=== PATIENT | female | born 1975 | race African-American/Black ===

== ENCOUNTER 2017-10-10 13:17 | Emergency (ER) | payer OTHER ==
[2017-10-10 13:39] VITALS: BP 105/69; PULSE 84; TEMP 98.4; BMI 29.3
[2017-10-10 14:52] LABS: HCG,QUALITATIVE URINE NEGATIVE
[2017-10-10 14:53] LABS: URINE APPEARANCE SLCLOUDY; URINE BILIRUBIN NEGATIVE (NEGATIVE); URINE BLOOD NEGATIVE (NEGATIVE); URINE COLOR STRAW; URINE GLUCOSE (UA) NEGATIVE (NEGATIVE); URINE KETONE NEGATIVE (NEGATIVE); URINE LEUK ESTERASE NEGATIVE (NEGATIVE); URINE NITRITE NEGATIVE (NEGATIVE); URINE PROTEIN NEGATIVE (NEGATIVE); URINE UROBILINOGEN NEGATIVE mg/dL (0.2-1.0)
--- NOTE | 2017-10-10 15:04 | PDOC ---
History of Present Illness - General Chief Complaint: ,Possible Stated Complaint: POSSIBLE Time Seen by Provider: 10/10/17 14:33 History Source: Patient Exam Limitations: No Limitations - History of Present Illness Initial Comments: 10/10/17 14:58 This is a 41-year-old female 5 para 5 who presents to emergency department having one positive and one negative test at home. Patient is concerned that she may be and wants reevaluation of possible . She states she has irregular menses but her last period started on September 29 last a for 5 days and was of her normal flow. Patient states she normally has 7 or 8 day menses is concerned that she may be as this was a presentation of during her last child. She denies any fevers, abdominal pain, back pain, vaginal discharge, vaginal bleeding at this time. 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 Past History - Past Medical History Allergies/Adverse Reactions: Allergies Allergy/AdvReac Type Severity Reaction Status Date / Time acetaminophen Allergy Intermediate Difficulty Verified 10/10/17 13:32 Breathing iodine Allergy Mild Swelling Verified 10/10/17 13:32 Penicillins Allergy Mild Hives Verified 10/10/17 13:32 COPD: No HTN: Yes - Immunization History Immunization Up to Date: No - Suicide/Smoking/Psychosocial Hx Smoking History: Current every day smoker Have you smoked in the past 12 months: Yes Number of Cigarettes Smoked Daily: 4 Information on smoking cessation initiated: No Hx Alcohol Use: No Drug/Substance Use Hx: No Substance Use Type: Marijuana Review of Systems - Review of Systems Able to Perform ROS?: Yes Is the patient limited Telugu proficient: No Constitutional: No: Symptoms Reported HEENTM: No: Symptoms Reported Respiratory: No: Symptoms reported Cardiac (ROS): No: Symptoms Reported ABD/GI: No: Symptoms Reported : No: Symptoms Reported Musculoskeletal: No: Symptoms Reported Integumentary: No: Symptoms Reported Neurological: No: Symptoms reported *Physical Exam - Vital Signs Last Vital Signs Temp Pulse Resp BP Pulse Ox 98.4 F 84 16 105/69 100 10/10/17 13:33 10/10/17 13:33 10/10/17 13:33 10/10/17 13:33 10/10/17 13:33 - Physical Exam General Appearance: Yes: Appropriately Dressed. No: Apparent Distress Respiratory/Chest: positive: Lungs Clear, Normal Breath Sounds. negative: Respiratory Distress, Accessory Muscle Use Cardiovascular: positive: Regular Rhythm, Regular Rate Gastrointestinal/Abdominal: positive: Normal Bowel Sounds, Soft. negative: Tender Musculoskeletal: positive: Normal Inspection. negative: CVA Tenderness Extremity: positive: Normal Inspection Integumentary: positive: Normal Color, Dry, Warm Neurologic: positive: Fully Oriented, Alert, Normal Mood/Affect, Normal Response ED Treatment Course - ADDITIONAL ORDERS Additional order review: Laboratory Results 10/10/17 02:32 Urine HCG, Qual Negative Medical Decision Making - Medical Decision Making 10/10/17 15:01 A/P: 41-year-old presents emergency Department with one positive and one negative home test. Patient is here to clarify her status. Abdomen soft nontender nondistended. Normoactive bowel sounds. Patient denies symptoms. I'll perform a urine test and reevaluate. Your testing is negative. Patient informed that she should follow-up with her primary doctor should she have any future concerns. *DC/Admit/Observation/Transfer Diagnosis at time of Disposition: Negative test - Discharge Dispostion Disposition: HOME Condition at time of disposition: Stable Admit: No - Referrals Referrals: Lakshmi Browne [Primary Care Provider] - - Patient Instructions Additional Instructions: Make an appointment with her primary doctor for evaluation if you experience symptoms. Return to emergency department for any concerns. Thank you very much for choosing us to provide your emergent healthcare needs. - Post Discharge Activity
== END 2017-10-10 15:19 | disposition home or self-care (01) ==
LOC: JERFT 13:17
DX: Z32.02 Encounter for pregnancy test, result negative (principal)
CPT/HCPCS: 81003; 84703; 99281-25

== ENCOUNTER 2018-01-25 16:34 | Inpatient (IN) | payer OTHER ==
--- NOTE | 2018-01-25 16:40 | PDOC ---
Rapid Medical Evaluation Time Seen by Provider: 01/25/18 16:35 Medical Evaluation: Allergies Allergy/AdvReac Type Severity Reaction Status Date / Time acetaminophen Allergy Intermediate Difficulty Verified 10/10/17 13:32 Breathing iodine Allergy Mild Swelling Verified 10/10/17 13:32 Penicillins Allergy Mild Hives Verified 10/10/17 13:32 I have performed a brief in-person evaluation of this patient. The patient presents with a chief complaint of: right sided pelvic pain x 2 weeks ago. +vomiting. LMP was last week. Denies vaginal bleeding/discharge. Patient admits to h/o PCP and marijuana use with last use 2 weeks ago. Pertinent physical exam findings: patient is sweating, tearful. I have ordered the following: labs, UA/hcg, urine tox The patient will proceed to the ED for further evaluation. Discharge Disposition - Diagnosis Pelvic pain - Referrals - Patient Instructions - Post Discharge Activity
[2018-01-25 17:09] LABS: BASO % 1.3 % (0-2.0); EOS % 1.1 % (0-4.5); HEMATOCRIT 40.2 % (32.4-45.2); HEMOGLOBIN 13.4 GM/dL (10.7-15.3); LYMPH % 33.1 % (8-40); MCHC 33.3 g/dl (32.0-36.0); MEAN CELL VOLUME 84.2 fl (80-96); MEAN PLT VOLUME 9.2 fl (7.5-11.1); NEUT % 45.5 % (42.8-82.8); PLATELET COUNT 253 K/MM3 (134-434); RBC 4.77 M/mm3 (3.60-5.2); RDW 13.4 % (11.6-15.6); WHITE BLOOD COUNT 3.4 K/mm3 (4.0-10.0)
--- NOTE | 2018-01-25 17:37 | PDOC ---
History of Present Illness - General Chief Complaint: Pain Stated Complaint: PAIN Time Seen by Provider: 01/25/18 16:35 History Source: Patient Exam Limitations: No Limitations - History of Present Illness Initial Comments: 01/25/18 17:32 Patient is an 42F with history of depression, anxiety, insomnia, PID, HLD, polysubstance abuse and here today complaining of suicidal ideation and pelvic pain. Patient states that she feels overwhelmed by life and is thinking about committing suicide because no one is helping her. She states that she has tried suicide in the past with an attempted overdose and an attempted drowning. Patient denies active plan at this time. Patient is tearful. Patient states that she used marijuana and PCP this morning. Patient endorses history of alcohol abuse, cocaine abuse and heroin abuse. Patient states that she has been having pelvic pain for the past 2 weeks, ever since she found out that she wasn't . Denies fevers, chills. Endorses an episode of nausea and vomiting last week. Last bowel movement was today. Endorses associated vaginal pain with sex. Denies discharge. Endorses history of PID in the past. Past History - Past Medical History Allergies/Adverse Reactions: Allergies Allergy/AdvReac Type Severity Reaction Status Date / Time acetaminophen Allergy Intermediate Difficulty Verified 01/25/18 16:35 Breathing iodine Allergy Mild Swelling Verified 01/25/18 16:35 Penicillins Allergy Mild Hives Verified 01/25/18 16:35 Home Medications: Ambulatory Orders NK [No Known Home Medication] 10/10/17 COPD: No DVT: No HTN: Yes - Immunization History Immunization Up to Date: No - Suicide/Smoking/Psychosocial Hx Smoking History: Current every day smoker Have you smoked in the past 12 months: Yes Number of Cigarettes Smoked Daily: 4 Information on smoking cessation initiated: Yes 'Breaking Loose' booklet given: 01/25/18 Hx Alcohol Use: Yes Drug/Substance Use Hx: Yes (pcp,avtar) Substance Use Type: Marijuana Review of Systems - Review of Systems Comments:: 01/25/18 17:35 GENERAL/CONSTITUTIONAL: No fever or chills. No weakness. HEAD, EYES, EARS, NOSE AND THROAT: No change in vision. No sore throat. CARDIOVASCULAR: No chest pain or shortness of breath RESPIRATORY: No cough, wheezing, or hemoptysis. GASTROINTESTINAL: Positive for nausea, vomiting. Negative for diarrhea or constipation. GENITOURINARY: No dysuria, frequency, or change in urination. MUSCULOSKELETAL: No joint or muscle swelling or pain. No neck or back pain. SKIN: No rash NEUROLOGIC: No headache, vertigo, loss of consciousness, or change in strength/ sensation. HEMATOLOGIC/LYMPHATIC: No anemia, easy bleeding, or history of blood clots. ALLERGIC/IMMUNOLOGIC: No hives or skin allergy. *Physical Exam - Vital Signs Last Vital Signs Temp Pulse Resp BP Pulse Ox 98.4 F 100 H 18 138/83 100 01/25/18 16:37 01/25/18 16:37 01/25/18 16:37 01/25/18 16:37 01/25/18 16:37 - Physical Exam Comments: 01/25/18 17:36 GENERAL: Awake, alert, and fully oriented, tearful, sitting up in bed. PSYCH: Mood is depressed, affect is congruent, endorses SI, denies HI HEAD: No signs of trauma, normocephalic, atraumatic EYES: PERRLA, EOMI, sclera anicteric, conjunctiva clear ENT: Auricles normal inspection, hearing grossly normal, nares patent, oropharynx clear without exudates. Moist mucosa NECK: Normal ROM, supple, no lymphadenopathy, JVD, or masses LUNGS: No distress, speaks full sentences, clear to auscultation bilaterally HEART: Regular rate and rhythm, normal S1 and S2, no murmurs, rubs or gallops, peripheral pulses normal and equal bilaterally. ABDOMEN: Soft, tender in suprapubic abdomen, normoactive bowel sounds. No guarding, no rebound. No masses EXTREMITIES: Normal inspection, Normal range of motion, no edema. No clubbing or cyanosis. NEUROLOGICAL: Cranial nerves II through XII grossly intact. Normal speech, normal gait, no focal sensorimotor deficits SKIN: Warm, Dry, normal turgor, no rashes or lesions noted. ED Treatment Course - LABORATORY CBC & Chemistry Diagram: 01/25/18 17:00 01/25/18 17:00 - ADDITIONAL ORDERS Additional order review: 01/25/18 17:00 RBC 4.77 MCV 84.2 MCHC 33.3 RDW 13.4 MPV 9.2 Neutrophils % 45.5 Lymphocytes % 33.1 Monocytes % 19.0 H Eosinophils % 1.1 Basophils % 1.3 Medical Decision Making - Medical Decision Making 01/25/18 17:37 Patient is 42F with history of depression, anxiety, PID, insomnia, hallucinations, HLD and here today complaining of suicidal ideation and lower abdominal pain. Patient has been placed on 1:1. DDx for abdominal pain is weighted towards UTI vs PID. Will workup with abdominal labs. Pelvic exam will be done once in private room. 01/25/18 18:34 Pelvic exam positive for discharge and CMT. Normal external genitalia. Will treat for PID as inpatient given patients socioeconomic status and SI. 01/25/18 18:42 CBC normal. UA negative. CMP reassuring. Utox and G/C pending. Will treat PID with clinda/gent as patient states that she has throat swelling with penicillin. EKG shows normal sinus rhythm with rate of 62. No st elevations/depressions. No significant t wave inversions. Dr Chamberlain contacted, will see patient in morning. *DC/Admit/Observation/Transfer Diagnosis at time of Disposition: PID (acute pelvic inflammatory disease) - Discharge Dispostion Condition at time of disposition: Stable Decision to Admit order: Yes - Referrals - Patient Instructions - Post Discharge Activity
[2018-01-25 17:40] LABS: ALK PHOS 79 U/L (45-117); ANION GAP 10 (8-16); BILIRUBIN,TOTAL 0.4 mg/dL (0.2-1.0); BLOOD UREA NITROGEN 10 mg/dL (7-18); CALCIUM 8.9 mg/dL (8.5-10.1); CHLORIDE 105 mmol/L (98-107); CO2 24 mmol/L (21-32); CREATININE 0.6 mg/dL (0.55-1.02); GLUCOSE,RANDOM 89 mg/dL (74-106); POTASSIUM 3.6 mmol/L (3.5-5.1); SGOT/AST 14 U/L (15-37); SGPT/ALT 19 U/L (12-78); SODIUM 139 mmol/L (136-145); TOT PROT 8.6 g/dl (6.4-8.2)
[2018-01-25 18:28] LABS: HCG,QUALITATIVE URINE NEGATIVE
[2018-01-25 18:32] LABS: URINE APPEARANCE CLOUDY; URINE BILIRUBIN NEGATIVE (<2.0 mg/dL); URINE BLOOD NEGATIVE (NEGATIVE); URINE COLOR YELLOW; URINE GLUCOSE (UA) NEGATIVE (NEGATIVE); URINE KETONE TRACE (NEGATIVE); URINE LEUK ESTERASE NEGATIVE (NEGATIVE); URINE NITRITE NEGATIVE (NEGATIVE); URINE PROTEIN NEGATIVE (NEGATIVE); URINE UROBILINOGEN NEGATIVE mg/dL (0.2-1.0)
[2018-01-25] MEDS ORDERED: GENTAMICIN SO4 *PEDIATRIC* 20 MG/2 ML VIAL IVPB ONE (18:41)
[2018-01-25] MEDS ORDERED: CLINDAMYCIN 900 MG PREMIX IVPB 900 MG/50 ML BAG IVPB ONE ×2 (18:41→19:57)
[2018-01-25 18:45] LABS: ACETAMINOPHEN <2.0 ug/mL
[2018-01-25 18:51] LABS: COCAINE, UR NEGATIVE ng/ml (CUTOFF=300); METHADONE, UR NEGATIVE ng/ml (CUTOFF=300); OPIATES, URI NEGATIVE ng/ml (CUTOFF=300); URINE AMPHETAMINES NEGATIVE ng/ml (CUTOFF=500); URINE BARBITURATES NEGATIVE ng/ml (CUTOFF=200); URINE BENZODIAZEPINES NEGATIVE ng/ml (CUTOFF=200)
[2018-01-25 18:52] LABS: PHENCYCLIDINE,URINE POSITIVE ng/ml (CUTOFF=25)
--- NOTE | 2018-01-25 18:58 | PDOC ---
Attending Attestation - Resident Resident Name: JaidendevoraMarko - ED Attending Attestation I have performed the following: I have examined & evaluated the patient, The case was reviewed & discussed with the resident, I agree w/resident's findings & plan, Exceptions are as noted - HPI HPI: 01/25/18 18:49 42-year-old male patient with history of psoriasis, pelvic inflammatory disease , depression, anxiety, polysubstance abuse presents with pelvic pain for 2 weeks. Patient reports that she sexually active one partner without condoms. She denies any vaginal discharge but noticed pain in the pelvic region. States it feels similar to prior pelvic inflammatory disease. Denies fevers or chills. Reports some dysuria and some lower abdominal suprapubic discomfort. Came into the ER for further evaluation. Incidentally, patient has been endorsing feeling generally overwhelmed and very depressed. The patient states that she has a lot of personal issues going on and has been endorsing suicidal ideation but without acute plan. She currently denies injuring herself. The patient was placed on one-to-one and psych was consulted. - Physicial Exam PE: 01/25/18 18:50 GENERAL: Awake, alert, and fully oriented, +depressed affect, +crying HEAD: No signs of trauma EYES:EOMI, sclera anicteric, conjunctiva clear ENT: Auricles normal inspection, hearing grossly normal, nares patent, NECK: Normal ROM, supple, ABDOMEN: Soft, suprapubic discomfort. No guarding, no rebound. No masses. 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 No clubbing or cyanosis. No cords, erythema, or tenderness NEUROLOGICAL: Cranial nerves II through XII grossly intact. Normal speech, normal gait SKIN: Warm, Dry, normal turgor, psoriasis noted on the skin - Medical Decision Making 01/25/18 18:53 Vital Signs Temp Pulse Resp BP Pulse Ox 98.4 F 100 H 18 138/83 100 01/25/18 16:37 01/25/18 16:37 01/25/18 16:37 01/25/18 16:37 01/25/18 16:37 42 year old female patient presents with pelvic pain likely pelvic inflammatory disease. We'll treat empirically with antibiotics. Patient is severely ALLERGIC to penicillin so we will avoid ceftriaxone and treat with gentamicin and clindamycin. We'll also obtain a urinalysis to rule out urinary tract infection. Given her severe penicillin ALLERGY, we'll admit for IV antibiotics. We had consulted psychiatry. Patient placed on one-to-one. Psychiatry will evaluate the patient. Heart Score/ECG Review #1 ECG reviewed & interpreted by me at: 18:35 01/25/18 18:59 NSR 62, no std/kevin, normal axis, normal intervals, T wave flag aVL< TWI V2, V3, QTC 430 msec
[2018-01-25] MEDS ORDERED: diazePAM CARPU-JECT 10 MG/2 ML DISP.SYRIN IVPUSH PRN (20:29)
[2018-01-25] MEDS ORDERED: LORazepam 1 MG TABLET PO PRN (20:38)
--- NOTE | 2018-01-25 20:52 | HP ---
CHIEF COMPLAINT: suicidal, abnominal pain PCP: None HISTORY OF PRESENT ILLNESS: The patient is a 42 year old female with a PMH of depression, anxiety, polysubstance abuse ( cocaine, heroin, Marijuana, PCP), psoriasis, bronchitis, hyperlipidemia, HTN, that presented to the hospital today complaining of suicidal thoughts, hearing voices. She states that he is "not feeling mentally stable" She had suicidal attempts in the past: tried drowning and medication overdose. She was treated with Seroquel and Risperidone but didn't like to continue those medications. The patient denied hurting herself or others. The patient used Marjiuana and PCP earlier today. She snores illicid drugs. For the past 1-2 weeks she started experiencing lower abdominal pain and foul smelling discharge from her vagina. She also endorsed pain with intercourse. She also had two episodes of non bloody non bilious vomiting today. The patient had STDs, PID in the past that was treated with antibiotics and she believes that the pain that she experiences now is similar in nature. She never had HIV testing and agrees to have one done. She denies fever, chills , chest pain, SOB, dysuria. She doesn't take any medications. ER course was notable for: (1)Clindamycin and Gentamycin (2)1:1 PAST SURGICAL HISTORY: c sections Social History: Smoking:no Alcohol:used to drink " a lot", quit 6 months ago Drugs: cocaine, PCP, heroin, Marijuana Family History: Allergies acetaminophen Allergy (Intermediate, Verified 01/25/18 16:35) Difficulty Breathing Hives iodine Allergy (Mild, Verified 01/25/18 16:35) Swelling Penicillins Allergy (Mild, Verified 01/25/18 16:35) Hives HOME MEDICATIONS: Home Medications Medication Instructions Recorded NK [No Known Home Medication] 10/10/17 REVIEW OF SYSTEMS CONSTITUTIONAL: Absent: fever, chills, diaphoresis, generalized weakness, malaise, loss of appetite, weight change HEENT: Absent: rhinorrhea, nasal congestion, throat pain, throat swelling, difficulty swallowing, CARDIOVASCULAR: Absent: chest pain, syncope, palpitations, irregular heart rate, lightheadedness , peripheral edema RESPIRATORY: Absent: cough, shortness of breath, dyspnea with exertion, orthopnea, wheezing, GASTROINTESTINAL: abdominal pain, Absent: abdominal distension, nausea, vomiting, diarrhea, constipation, GENITOURINARY: Absent: dysuria, frequency, urgency, hesitancy, hematuria, flank pain, genital pain MUSCULOSKELETAL: Absent: myalgia, arthralgia, joint swelling, back pain, neck pain SKIN: Absent: rash, itching, pallor HEMATOLOGIC/IMMUNOLOGIC: Absent: easy bleeding, easy bruising, lymphadenopathy, frequent infections ENDOCRINE: Absent: unexplained weight gain, unexplained weight loss, heat intolerance, cold intolerance NEUROLOGIC: Absent: headache, focal weakness or paresthesias, dizziness, unsteady gait, seizure PSYCHIATRIC: anxiety, depression, Absent: suicidal or homicidal ideation PHYSICAL EXAMINATION Vital Signs - 24 hr 01/25/18 16:37 Temperature 98.4 F Pulse Rate 100 H Respiratory 18 Rate Blood Pressure 138/83 O2 Sat by Pulse 100 Oximetry (%) GENERAL: Awake, alert, and fully oriented, in no acute distress. HEAD: Normal with no signs of trauma. EYES: extraocular movements intact, sclera anicteric, conjunctiva clear. EARS, NOSE, THROAT: Oropharynx clear without exudates. Moist mucous membranes. NECK: Normal range of motion, supple without lymphadenopathy, JVD, or masses. LUNGS: Breath sounds equal, clear to auscultation bilaterally. No wheezes, and no crackles. No accessory muscle use. HEART: Regular rate and rhythm, normal S1 and S2 without murmur, rub or gallop. ABDOMEN: Soft, ntender in lower abdomen, not distended, normoactive bowel sounds , no guarding, no rebound, no masses. MUSCULOSKELETAL: Normal range of motion at all joints. No bony deformities or tenderness. UPPER EXTREMITIES: No peripheral edema. LOWER EXTREMITIES: 2+ pulses, trace peripheral edema. NEUROLOGICAL: No facial asymmetry, no slurred speech, gait not observed, no tremors. PSYCHIATRIC: Cooperative. Good eye contact. Anxious. SKIN: Warm, dry, normal turgor, psoriatic skin changes in upper all over her body. Laboratory Results - last 24 hr 01/25/18 01/25/18 01/25/18 16:57 17:00 17:00 WBC 3.4 L RBC 4.77 Hgb 13.4 Hct 40.2 MCV 84.2 MCH 28.0 MCHC 33.3 RDW 13.4 Plt Count 253 MPV 9.2 Neutrophils % 45.5 Lymphocytes % 33.1 Monocytes % 19.0 H Eosinophils % 1.1 Basophils % 1.3 Nucleated RBC % 0 Sodium 139 Potassium 3.6 Chloride 105 Carbon Dioxide 24 Anion Gap 10 BUN 10 Creatinine 0.6 Creat Clearance w eGFR > 60 Random Glucose 89 Calcium 8.9 Total Bilirubin 0.4 AST 14 L ALT 19 Alkaline Phosphatase 79 Total Protein 8.6 H Albumin 4.0 Urine Color Urine Appearance Urine pH Ur Specific Ryan Urine Protein Urine Glucose (UA) Urine Ketones Urine Blood Urine Nitrite Urine Bilirubin Urine Urobilinogen Ur Leukocyte Esterase Urine HCG, Qual Salicylates 4.400 Opiates Screen Methadone Screen Acetaminophen <2.0 Barbiturate Screen Phencyclidine Screen Ur Amphetamines Screen MDMA (Ecstasy) Screen Benzodiazepines Screen Cocaine Screen U Marijuana (THC) Screen Alcohol, Quantitative < 5.0 01/25/18 01/25/18 18:14 18:14 WBC RBC Hgb Hct MCV MCH MCHC RDW Plt Count MPV Neutrophils % Lymphocytes % Monocytes % Eosinophils % Basophils % Nucleated RBC % Sodium Potassium Chloride Carbon Dioxide Anion Gap BUN Creatinine Creat Clearance w eGFR Random Glucose Calcium Total Bilirubin AST ALT Alkaline Phosphatase Total Protein Albumin Urine Color Yellow Urine Appearance Cloudy Urine pH 5.0 Ur Specific Ryan 1.016 Urine Protein Negative Urine Glucose (UA) Negative Urine Ketones Trace H Urine Blood Negative Urine Nitrite Negative Urine Bilirubin Negative Urine Urobilinogen Negative Ur Leukocyte Esterase Negative Urine HCG, Qual Negative Salicylates Opiates Screen Negative Methadone Screen Negative Acetaminophen Barbiturate Screen Negative Phencyclidine Screen Positive Ur Amphetamines Screen Negative MDMA (Ecstasy) Screen Negative Benzodiazepines Screen Negative Cocaine Screen Negative U Marijuana (THC) Screen Positive Alcohol, Quantitative ASSESSMENT/PLAN: The patient is a 42 year old female with a PMH of depression, anxiety, polysubstance abuse ( cocaine, heroin, Marijuana, PCP), psoriasis, bronchitis, hyperlipidemia, HTN, that presented to the hospital today complaining of suicidal thoughts. The patient also presented with abdominal pain. She is admitted for suicidal thoughts and PID. Suicidal thoughts: -the patient has a history of depression and anxiety in the past. History of polysubstance abuse, not on any medications -1:1 -Psychiatry consultation -Ativan PO q6h SHARON and IV PUSH when needed in case of agitation-for PCP abuse Pelvic pain: -the patient presented with pelvic pain, vaginal discharge, foul smelling -gonnorhea and chlamydia sent -HIV ordered, the patient agreed -Gentamycin 3 mg/kg and Clindamycin 900 mg TID ordered DVT PPX: Heparin sq -scds F/E/N: no/no changes/Regular Dispostion: med surg - Problem List - Problem (1) Suicidal behavior Code(s): R46.89 - OTHER SYMPTOMS AND SIGNS INVOLVING APPEARANCE AND BEHAVIOR (2) PID (acute pelvic inflammatory disease) Code(s): N73.0 - ACUTE PARAMETRITIS AND PELVIC CELLULITIS Visit type - Emergency Visit Emergency Visit: Yes ED Registration Date: 01/25/18 Care time: The patient presented to the Emergency Department on the above date and was hospitalized for further evaluation of their emergent condition. - New Patient This patient is new to me today: Yes Date on this admission: 01/26/18 - Critical Care Critical Care patient: No
[2018-01-25] MEDS ORDERED: DEXTROSE 5% IVPB ONE (21:30)
[2018-01-25] MEDS ORDERED: GENTAMICIN IVPB ONE (21:30)
[2018-01-25] MEDS ORDERED: WATER IVPB ONE (21:30)
[2018-01-25] MEDS: LORazepam 1 MG TABLET PO SCH (21:54)
[2018-01-25] MEDS: ACETAMINOPHEN 325 MG TABLET (FP) PO PRN (21:55)
[2018-01-25] MEDS: HEPARIN NA (PORCINE) 5,000 UNITS/ML 1ML VIAL SQ SCH (21:56)
[2018-01-25 22:40] VITALS: BMI 31.6
--- NOTE | 2018-01-26 00:04 | PN ---
Teaching Attending Note Name of Resident: Shikha Sandhu ATTENDING PHYSICIAN STATEMENT I saw and evaluated the patient. I reviewed the resident's note and discussed the case with the resident. I agree with the resident's findings and plan as documented. SUBJECTIVE: OBJECTIVE: ASSESSMENT AND PLAN: patient is being admitted for acute hallucinations with suicidal ideation and also thoughts of harming people. according to the patient she smoked marjuana today and took some PCP as well before she came. while in the ER she was complaining of pelvic pain patient was found to have PID admit to the hospital place patient on 1:1 lorazepam 0.5mg q6hrs lorazepam 1mg IVP prn for aggitation avoid antipsychotics for the patient due to the risk of rhabdomyolysis 2/2 to PCP interactions with antipsychotic PID start the patient on gentamicin and clindamycin HIV testing STI testing dermatological evaluation for psoriasis
[2018-01-26] MEDS: CLINDAMYCIN 900 MG PREMIX IVPB 900 MG/50 ML BAG IVPB SCH ×3 (01:15→17:21)
[2018-01-26] MEDS: ACETAMINOPHEN 325 MG TABLET (FP) PO PRN ×2 (03:57→22:29)
[2018-01-26 08:10] LABS: BASO % 1.1 % (0-2.0); EOS % 2.3 % (0-4.5); HEMATOCRIT 36.1 % (32.4-45.2); HEMOGLOBIN 12.1 GM/dL (10.7-15.3); LYMPH % 30.9 % (8-40); MCH 28.1 pg (25.7-33.7); MCHC 33.7 g/dl (32.0-36.0); MEAN CELL VOLUME 83.5 fl (80-96); MEAN PLT VOLUME 9.6 fl (7.5-11.1); MONO % 21.2 % (3.8-10.2); NEUT % 44.5 % (42.8-82.8); PLATELET COUNT 207 K/MM3 (134-434); RBC 4.32 M/mm3 (3.60-5.2); RDW 13.1 % (11.6-15.6); WHITE BLOOD COUNT 3.2 K/mm3 (4.0-10.0)
[2018-01-26 08:31] LABS: ALBUMIN 3.5 g/dl (3.4-5.0); ANION GAP 9 (8-16); BILIRUBIN,TOTAL 0.4 mg/dL (0.2-1.0); BLOOD UREA NITROGEN 13 mg/dL (7-18); CHLORIDE 104 mmol/L (98-107); CO2 25 mmol/L (21-32); CREATININE 0.6 mg/dL (0.55-1.02); GLUCOSE,RANDOM 80 mg/dL (74-106); MAGNESIUM 2.2 mg/dL (1.8-2.4); POTASSIUM 3.2 mmol/L (3.5-5.1); SGOT/AST 13 U/L (15-37); SGPT/ALT 18 U/L (12-78); SODIUM 138 mmol/L (136-145)
[2018-01-26 08:32] LABS: ALK PHOS 68 U/L (45-117); TOT PROT 7.4 g/dl (6.4-8.2)
[2018-01-26 09:29] LABS: PLATELET ESTIMATE NORMAL
[2018-01-26 09:46] LABS: CALCIUM 8.8 mg/dL (8.5-10.1)
[2018-01-26] MEDS: HEPARIN NA (PORCINE) 5,000 UNITS/ML 1ML VIAL SQ SCH ×2 (09:52→22:28)
[2018-01-26] MEDS: LORazepam 1 MG TABLET PO SCH ×4 (09:52→22:28)
--- NOTE | 2018-01-26 15:00 | PN ---
Progress Note (short form) - Note Progress Note: c/o pain in the ear like something is crawling in there. continues to have foul smelling vaginal discharge and abdominal pain. denies CP, SOB, fever, chills, N/ V/C/D Current Medications Generic Name Dose Route Start Last Admin Trade Name Freq PRN Reason Stop Dose Admin Acetaminophen 650 mg 01/25/18 21:47 01/26/18 03:57 Tylenol - PO 650 mg Q4H PRN Administration PAIN LEVEL 4 - 6 Heparin Sodium (Porcine) 5,000 unit 01/25/18 22:00 01/26/18 09:52 Heparin - SQ 5,000 unit BID SHARON Administration Clindamycin Phosphate 900 mg in 50 mls @ 100 mls/hr 01/26/18 02:00 01/26/18 09:53 Cleocin 900 Mg Premix Ivpb - IVPB 100 mls/hr Q8H-IV SHARON Administration Protocol Lorazepam 1 mg 01/25/18 20:40 Ativan Injection - IVPUSH Q4H PRN AGITATION Lorazepam 0.5 mg 01/25/18 21:00 01/26/18 13:23 Ativan - PO 0.5 mg QID SHARON Administration Last Vital Signs Temp Pulse Resp BP Pulse Ox 98.5 F 90 20 156/67 100 01/26/18 09:00 01/26/18 09:00 01/26/18 09:00 01/26/18 09:00 01/26/18 09:00 General mildly anxious, +flight of ideas, dishelved HEENT no tragus pain no pain on manipulation of the auricle. no drainage noted CVS1 S2 RRR no murmur/rub/gallop Lungs CTA B/L no wheezing/rales/rhonchi Abdomen soft diffuse tender worse in RLQ/LLQ obese, Extremities no pedal edema skin scaly plaques over all extremities CBCD WBC 3.2 K/mm3 (4.0-10.0) L 01/26/18 07:00 RBC 4.32 M/mm3 (3.60-5.2) 01/26/18 07:00 Hgb 12.1 GM/dL (10.7-15.3) 01/26/18 07:00 Hct 36.1 % (32.4-45.2) 06/02/18 07:00 MCV 83.5 fl (80-96) 01/26/18 07:00 MCHC 33.7 g/dl (32.0-36.0) 01/26/18 07:00 RDW 13.1 % (11.6-15.6) 01/26/18 07:00 Plt Count 207 K/MM3 (134-434) 01/26/18 07:00 MPV 9.6 fl (7.5-11.1) 01/26/18 07:00 CMP Sodium 138 mmol/L (136-145) 01/26/18 07:00 Potassium 3.2 mmol/L (3.5-5.1) L 01/26/18 07:00 Chloride 104 mmol/L (98-107) 01/26/18 07:00 Carbon Dioxide 25 mmol/L (21-32) 01/26/18 07:00 Anion Gap 9 (8-16) 01/26/18 07:00 BUN 13 mg/dL (7-18) 01/26/18 07:00 Creatinine 0.6 mg/dL (0.55-1.02) 01/26/18 07:00 Creat Clearance w eGFR > 60 (>60) 01/26/18 07:00 Calcium 8.8 mg/dL (8.5-10.1) 01/26/18 07:00 Total Bilirubin 0.4 mg/dL (0.2-1.0) 01/26/18 07:00 AST 13 U/L (15-37) L 01/26/18 07:00 ALT 18 U/L (12-78) 01/26/18 07:00 Alkaline Phosphatase 68 U/L (45-117) 01/26/18 07:00 Total Protein 7.4 g/dl (6.4-8.2) 01/26/18 07:00 Albumin 3.5 g/dl (3.4-5.0) 01/26/18 07:00 A/P 42yo F with PMH depression, anxiety, HTN, psorasis, continuous polysubstance abuse with use of THC and PCP on day of admission presented with suicidal thoughts 1. Suicidal idealizations- appears to be psychotic and possibly manic. continues to have thought of hurting herself but unable to get straight answer as on questioning she discusses what she has done in the past (drowning and overdosing on her psychotropic medications). will cont 1:1 observation as she is a threat to herself. started on zyprexa by psych. if she remains unstable in the next 48H will need to be transferred to inpatient psychiatric center 2. Vaginal discharge- concern for PID as has significant abdominal pain. pt is non-toxic appearing. Upreg negative. GC and chlamydia and HIV pending. started on clinda and gentamycin in the ER will consult MANAGER ESTATE to determine if indeed has PID and if IV abx should be continued or can transition to po. PCN allergy 3. Hypokalemia- KCL po. check Mg level 4. Ear discomfort- no obvious signs of infection on external evaluation. will see if can find otoscope to do full exam 5. HTN- controlled off medications. monitor 6. psorasis- states she uses some creams. however believe pt would benefit from oral therapy due to extensive body surface coverage. however does not seem to affecting her at this time. should follow up with dermatology 7. Continuous polysubstance abuse- no signs of withdrawal. counseled on risks assoc with continued use. verbalized understanding 8. DVT ppx- hep sq Visit type - Emergency Visit Emergency Visit: Yes ED Registration Date: 01/25/18 Care time: The patient presented to the Emergency Department on the above date and was hospitalized for further evaluation of their emergent condition. - New Patient This patient is new to me today: Yes Date on this admission: 01/26/18 - Critical Care Critical Care patient: No - Discharge Referral Referred to [facility] Med P.C.: No
--- NOTE | 2018-01-26 15:20 | CON.PSY ---
Psychiatry Consult Chief Complaint: 42 year old female with what appears to be with a lonf history of SChizo affective Disorder. She was Hospitalized at [facility] inj 2003 and was followed at [facility] for few years. She has not taken any psych meds recently. Symptoms: reports: Depressed Mood, Anhedonia, Suicidality, Self destructive thoughts, Impulsivity, Disorganized/Disruptive Thoughts - Previous Psychiatric Treatment Outpatient: More than 6 mos ago Inpatient: One prior admission - Previous Substance Abuse Treatment Outpatient: None Inpatient: None - Reason for Previous Treatment Reason for Previous Treatment: Major Depression, Psychotic Episode - Current Medications Current Medications: Active Medications Acetaminophen (Tylenol -) 650 mg PO Q4H PRN PRN Reason: PAIN LEVEL 4 - 6 Last Admin: 01/26/18 03:57 Dose: 650 mg Heparin Sodium (Porcine) (Heparin -) 5,000 unit SQ BID SHARON Last Admin: 01/26/18 09:52 Dose: 5,000 unit Clindamycin Phosphate (Cleocin 900 Mg Premix Ivpb -) 900 mg in 50 mls @ 100 mls /hr IVPB Q8H-IV SHARON; Protocol Last Admin: 01/26/18 09:53 Dose: 100 mls/hr Lorazepam (Ativan Injection -) 1 mg IVPUSH Q4H PRN PRN Reason: AGITATION Lorazepam (Ativan -) 0.5 mg PO QID SHARON Last Admin: 01/26/18 13:23 Dose: 0.5 mg - Allergies Allergies: Allergies Allergy/AdvReac Type Severity Reaction Status Date / Time iodine Allergy Mild Swelling Verified 01/25/18 16:35 Penicillins Allergy Mild Hives Verified 01/25/18 16:35 - Current Living Status Usual Living Arrangement: With Spouse - Current Mental Status Evaluation Appearance: Disheveled Attitude: Cooperative - Affect Affect: Constrictive Appropriateness: Appropriate to Content - Mood Mood: Anxious - Speech/Language Expressive: Coherent - Psychomotor Activity Psychomotor Activity: Slowed - Thought Process Thought Process: Circumstantial - Thought Content Delusions: Present Type: Being Controlled - Self Perception Self Perception: No Impairment - Cognition Attention: Alert Orientation: Time Memory, Immediate Recall: Intact Memory, Short Term: 2/3 Memory, Remote: Impaired - Concentration Serial Sevens Intact: No Simple Calculations Intact: No - Abstraction Proverb Interpretation: Impaired Judgement: Moderately Impaired - Insight Insight: Impaired - Impulse Control Impulse Control: Minimally Impaired - Suicidal Ideation Suicidal Ideation: Yes (Vague plans) - Homicidal Ideation Homicidal Ideation: No Assessment/Plan !0 Continue with1:1. 2) Zyprexa 10mg po bid. 3) May need Psych In patient psych if she continues to be suicuidal when she is medically stable.
[2018-01-26] MEDS ORDERED: POTASSIUM CHLORIDE ORAL LIQUID 20 MEQ/15 ML PO ONE (16:45)
[2018-01-26] MEDS ORDERED: PT OWN MED DRAWER 7, Y5N ONE (22:25)
[2018-01-26] MEDS: OLANZapine 10 MG TABLET PO SCH (22:28)
[2018-01-27] MEDS: CLINDAMYCIN 900 MG PREMIX IVPB 900 MG/50 ML BAG IVPB SCH ×3 (01:57→17:29)
[2018-01-27 08:16] LABS: CHLORIDE 107 mmol/L (98-107); POTASSIUM 3.8 mmol/L (3.5-5.1); SODIUM 140 mmol/L (136-145)
[2018-01-27 08:24] LABS: ANION GAP 8 (8-16); BLOOD UREA NITROGEN 12 mg/dL (7-18); CALCIUM 8.2 mg/dL (8.5-10.1); CO2 25 mmol/L (21-32); CREATININE 0.5 mg/dL (0.55-1.02); GLUCOSE,RANDOM 76 mg/dL (74-106); MAGNESIUM 2.2 mg/dL (1.8-2.4)
--- NOTE | 2018-01-27 09:44 | PN ---
Progress Note (short form) - Note Progress Note: c/o voices in her head. said they were just telling her to hurt herself but now they want her to do bad things to other people. continues to have abdominal pain however states vaginal discharge stopped. denies CP, SOB, fever, chills, N/ V/C/D, no longer have ear pain or sensation of something crawling in the ear Current Medications Generic Name Dose Route Start Last Admin Trade Name Freq PRN Reason Stop Dose Admin Acetaminophen 650 mg 01/25/18 21:47 01/26/18 22:29 Tylenol - PO 650 mg Q4H PRN Administration PAIN LEVEL 4 - 6 Heparin Sodium (Porcine) 5,000 unit 01/25/18 22:00 01/26/18 22:28 Heparin - SQ 5,000 unit BID SHARON Administration Clindamycin Phosphate 900 mg in 50 mls @ 100 mls/hr 01/26/18 02:00 01/27/18 01:57 Cleocin 900 Mg Premix Ivpb - IVPB 100 mls/hr Q8H-IV SHARON Administration Protocol Lorazepam 1 mg 01/25/18 20:40 01/27/18 00:20 Ativan Injection - IVPUSH 1 mg Q4H PRN Administration AGITATION Lorazepam 0.5 mg 01/25/18 21:00 01/26/18 22:28 Ativan - PO 0.5 mg QID SHARON Administration Olanzapine 10 mg 01/26/18 22:00 01/26/18 22:28 Zyprexa - PO 10 mg BID SHARON Administration Last Vital Signs Temp Pulse Resp BP Pulse Ox 98.3 F 73 18 150/66 100 01/27/18 06:00 01/27/18 06:00 01/27/18 06:00 01/27/18 06:00 01/26/18 21:00 General NAD HEENT no tragus pain no pain on manipulation of the auricle. no drainage noted CVS1 S2 RRR no murmur/rub/gallop Lungs CTA B/L no wheezing/rales/rhonchi Abdomen soft diffuse tender worse in RLQ/LLQ obese, +diffuse guarding Extremities no pedal edema skin scaly plaques over all extremities CMP Sodium 140 mmol/L (136-145) 01/27/18 07:00 Potassium 3.8 mmol/L (3.5-5.1) 01/27/18 07:00 Chloride 107 mmol/L (98-107) 01/27/18 07:00 Carbon Dioxide 25 mmol/L (21-32) 01/27/18 07:00 Anion Gap 8 (8-16) 01/27/18 07:00 BUN 12 mg/dL (7-18) 01/27/18 07:00 Creatinine 0.5 mg/dL (0.55-1.02) L 01/27/18 07:00 Creat Clearance w eGFR > 60 (>60) 01/26/18 07:00 Calcium 8.2 mg/dL (8.5-10.1) L 01/27/18 07:00 Total Bilirubin 0.4 mg/dL (0.2-1.0) 01/26/18 07:00 AST 13 U/L (15-37) L 01/26/18 07:00 ALT 18 U/L (12-78) 01/26/18 07:00 Alkaline Phosphatase 68 U/L (45-117) 01/26/18 07:00 Total Protein 7.4 g/dl (6.4-8.2) 01/26/18 07:00 Albumin 3.5 g/dl (3.4-5.0) 01/26/18 07:00 Microbiology 01/25/18 18:14 Urine Culture - Preliminary Urine - Urine Clean Catch A/P 42yo F with PMH depression, anxiety, HTN, psorasis, continuous polysubstance abuse with use of THC and PCP on day of admission presented with suicidal thoughts 1. Suicidal idealizations- continues to have suicidal and now homicidal thoughts. she does not want to repeat what the voices are telling her to do because she "will get in trouble". will reach out to psych. cont zyprexa. will need inpatient psych. 2. Vaginal discharge- concern for PID as has significant abdominal pain. vaginal discharge stopped however abdominal pain persists. SENIOR SAFETY SUPPORT MANAGER to come examine now. if not concerned will consider CT of the abdomen hwoever symptoms may be psychosomatic as no tenderness when examined with stethoscope pressure. cont clinda at this time. day 2 3. Hypokalemia- resolved 4. Ear discomfort- now no longer having symptoms 5. HTN- controlled off medications. monitor 6. psorasis- states she uses some creams. however believe pt would benefit from oral therapy due to extensive body surface coverage. however does not seem to affecting her at this time. should follow up with dermatology 7. Continuous polysubstance abuse- no signs of withdrawal. counseled on risks assoc with continued use. verbalized understanding 8. DVT ppx- hep sq 9. will need inpatient psychaitric evaluation Visit type - Emergency Visit Emergency Visit: Yes ED Registration Date: 01/25/18 Care time: The patient presented to the Emergency Department on the above date and was hospitalized for further evaluation of their emergent condition. - New Patient This patient is new to me today: No - Critical Care Critical Care patient: No - Discharge Referral Referred to [facility] Med P.C.: No
[2018-01-27] MEDS ORDERED: PT OWN MED DRAWER 7, Y5N ONE ×2 (09:52→21:08)
--- NOTE | 2018-01-27 10:27 | CON.OBG ---
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 She had one previous . She admits to foul smell when urinating. Urinalysis is negative. - History Source History Provided By: Patient Limitations to Obtaining History: Intoxication - Past Medical History ...LMP: 01/08/18 ...: No ...Para: 5 Dermatology: Yes: Psoriasis - Past Surgical History Past Surgical History: Yes: - Alcohol/Substance Use Hx Alcohol Use: Yes History of Substance Use: reports: Marijuana - Smoking History Smoking history: Current every day smoker Have you smoked in the past 12 months: Yes Aproximately how many cigarettes per day: 4 - Social History Usual Living Arrangement: With Spouse Home Medications - Allergies Allergies/Adverse Reactions: Allergies Allergy/AdvReac Type Severity Reaction Status Date / Time iodine Allergy Mild Swelling Verified 01/25/18 16:35 Penicillins Allergy Mild Hives Verified 01/25/18 16:35 - Home Medications Home Medications: Ambulatory Orders NK [No Known Home Medication] 10/10/17 Family Disease History - Family Disease History Family History: Unable to Obtain Review of Systems - Review of Systems Constitutional: reports: No Symptoms Eyes: reports: No Symptoms HENT: reports: No Symptoms Neck: reports: No Symptoms Cardiovascular: reports: No Symptoms Respiratory: reports: No Symptoms Gastrointestinal: reports: No Symptoms Genitourinary: reports: Pain Breasts: reports: No Symptoms Reported Musculoskeletal: reports: No Symptoms Integumentary: reports: Change in Color Neurological: reports: No Symptoms Endocrine: reports: No Symptoms Psychiatric: reports: Anxiety, Depression, Suicidal Pain Intensity: 4 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 Vital Signs: Vital Signs Temperature 98.3 F 01/27/18 06:00 Pulse Rate 73 01/27/18 06:00 Respiratory Rate 18 01/27/18 06:00 Blood Pressure 150/66 01/27/18 06:00 O2 Sat by Pulse Oximetry (%) 100 01/26/18 21:00 Constitutional: Yes: Well Nourished Eyes: Yes: Conjunctiva Clear Neck: Yes: Supple Cardiovascular: Yes: Regular Rate and Rhythm Respiratory: Yes: Regular Gastrointestinal: Yes: Tenderness Pelvis: Yes: Tenderness External Genitalia: Yes: Normal Vaginal Exam: Yes: Normal Cervix: Yes: Normal Adnexa: Tender: Bilateral Breast(s): Yes: WNL Neurological: Yes: Alert, Oriented ...Motor Strength: WNL Psychiatric: Yes: Suicidal Ideation Labs: CBC, BMP 01/26/18 07:00 01/27/18 07:00 Problem List - Problems (1) Pelvic pain Code(s): R10.2 - PELVIC AND PERINEAL PAIN Assessment/Plan Pelvic pain R/O ovarian cyst R/O Adenomyosis R/O pelvic adhesion F/U pelvic sonogram
[2018-01-27] MEDS: LORazepam 1 MG TABLET PO SCH ×4 (10:28→21:18)
[2018-01-27] MEDS: OLANZapine 10 MG TABLET PO SCH ×2 (10:28→21:18)
[2018-01-27] MEDS: HEPARIN NA (PORCINE) 5,000 UNITS/ML 1ML VIAL SQ SCH ×2 (10:32→21:18)
[2018-01-27] MEDS ORDERED: HALOPERIDOL LACTATE 5 MG/ML IM ONE (15:00)
[2018-01-27] MEDS: ACETAMINOPHEN 325 MG TABLET (FP) PO PRN ×2 (17:38→23:58)
--- NOTE | 2018-01-27 22:23 | EKG ---
Test Reason : Blood Pressure : / mmHG Vent. Rate : 062 BPM Atrial Rate : 062 BPM P-R Int : 156 ms QRS Dur : 086 ms QT Int : 424 ms P-R-T Axes : 044 070 048 degrees QTc Int : 430 ms NORMAL SINUS RHYTHM NORMAL ECG NO PREVIOUS ECGS AVAILABLE Confirmed by GAIL HOUSTON MD ([id number]) on 01/27/2018 10:23:08 PM Referred By: Confirmed By:GAIL HOUSTON MD
[2018-01-28] MEDS ORDERED: PT OWN MED DRAWER 7, Y5N ONE (00:49)
[2018-01-28] MEDS: CLINDAMYCIN 900 MG PREMIX IVPB 900 MG/50 ML BAG IVPB SCH ×2 (01:42→09:51)
[2018-01-28 06:20] VITALS: BP 118/65; PULSE 90; TEMP 98.9
[2018-01-28 07:05] LABS: HEMATOCRIT 33.2 % (32.4-45.2); HEMOGLOBIN 11.3 GM/dL (10.7-15.3); MCH 28.3 pg (25.7-33.7); MCHC 33.9 g/dl (32.0-36.0); MEAN CELL VOLUME 83.4 fl (80-96); MEAN PLT VOLUME 9.5 fl (7.5-11.1); PLATELET COUNT 186 K/MM3 (134-434); RBC 3.98 M/mm3 (3.60-5.2); RDW 13.2 % (11.6-15.6); WHITE BLOOD COUNT 4.6 K/mm3 (4.0-10.0)
[2018-01-28] MEDS: LORazepam 1 MG TABLET PO SCH ×2 (09:51→15:07)
[2018-01-28] MEDS: HEPARIN NA (PORCINE) 5,000 UNITS/ML 1ML VIAL SQ SCH (09:51)
[2018-01-28] MEDS: OLANZapine 10 MG TABLET PO SCH (09:51)
--- NOTE | 2018-01-28 11:50 | PN ---
Progress Note (short form) - Note Progress Note: Psych follow up: Patient continues to display acute Psychotic thinking and behaviour. She attempted to elope Yesterday. still has disorganized thinking. Patient was visited be her hb. PLAN: Continue with 1:1. 2) Still needs In Patient psych if she continues to be Psychotic.
--- NOTE | 2018-01-28 14:23 | PN ---
Teaching Attending Note Name of Resident: Franklin Li ATTENDING PHYSICIAN STATEMENT I saw and evaluated the patient. I reviewed the resident's note and discussed the case with the resident. I agree with the resident's findings and plan as documented. SUBJECTIVE:continues to have abdominal pain but improved. no more vaginal discharge. states she is not hearing voices at this moment. they were very aggressive with her last night and she tried to leave the hospital in the hopes the voices would stop. they finally stopped a little while ago. denies CP, SOB, fever, chills, N/V/C/D OBJECTIVE: Last Vital Signs Temp Pulse Resp BP Pulse Ox 98.9 F 90 20 118/65 100 01/28/18 06:00 01/28/18 06:00 01/28/18 09:00 01/28/18 06:00 01/28/18 09:00 General NAD Abdomen soft RLQ and LLQ tenderness, obese ASSESSMENT AND PLAN: 42yo F with PMH depression, anxiety, HTN, psorasis, continuous polysubstance abuse with use of THC and PCP on day of admission presented with suicidal thoughts 1. Suicidal idealizations- attempted to elope yesterday due to the voices giving her commands and being scared she may actually do it. at present moment states she does not hear them anymore. pt would benefit from inpatient psychiatric eval and medication adjustment. on max dose zyprexa. cont 1:1 observation. 2. Vaginal discharge-now stopped. TVUS negative for acute pathology. has fibroid that can be followed as outpatient. will d/c clinda at this time. will obtain abdominal CT to r/o any other pathology as she remains pretty tender. 3. Hypokalemia- resolved 4. Ear discomfort- resolved 5. HTN- controlled off medications. monitor 6. psorasis- states she uses some creams. however believe pt would benefit from oral therapy due to extensive body surface coverage. however does not seem to affecting her at this time. should follow up with dermatology 7. Continuous polysubstance abuse- no signs of withdrawal. counseled on risks assoc with continued use. verbalized understanding 8. DVT ppx- hep sq 9. Forms filled out for 2PC commit
--- NOTE | 2018-01-28 16:31 | PN ---
Physical Exam: SUBJECTIVE: Patient seen and examined at bedside. Pt denies suicidality/ homocidality/hearing voices. Had told a colleague that se did not want to admit to hearing voices for fear of being committed. Pt attempted to elope yesterday. No other complaints. OBJECTIVE: Vital Signs Period Temp Pulse Resp BP Sys/Zayas Pulse Ox Last 24 Hr 98.4 F-98.9 F 78-90 20-20 118-128/65-66 100-100 Gen: pt appears upset, but NAD HEENT: NCAT Neck: supple, no JVD Cardio: S1S2, RRR, no m/r/g Pulm: CTA b/l Abd: mild tenderness diffusely. No guarding Ext: Psoriatic skin plaques on extensor surfaces of b/l arms Laboratory Results - last 24 hr 01/28/18 06:39 WBC 4.6 D RBC 3.98 Hgb 11.3 Hct 33.2 MCV 83.4 MCH 28.3 MCHC 33.9 RDW 13.2 Plt Count 186 MPV 9.5 Active Medications Generic Name Dose Route Start Last Admin Trade Name Freq PRN Reason Stop Dose Admin Acetaminophen 650 mg 01/25/18 21:47 01/27/18 23:58 Tylenol - PO 650 mg Q4H PRN Administration PAIN LEVEL 4 - 6 Heparin Sodium (Porcine) 5,000 unit 01/25/18 22:00 01/28/18 09:51 Heparin - SQ 5,000 unit BID SHARON Administration Lorazepam 1 mg 01/25/18 20:40 01/27/18 23:58 Ativan Injection - IVPUSH 1 mg Q4H PRN Administration AGITATION Lorazepam 0.5 mg 01/25/18 21:00 01/28/18 15:07 Ativan - PO 0.5 mg QID SHARON Administration Olanzapine 10 mg 01/26/18 22:00 01/28/18 09:51 Zyprexa - PO 10 mg BID SHARON Administration ASSESSMENT/PLAN: 42yo F with PMH depression, anxiety, HTN, psorasis, continuous polysubstance abuse with use of THC and PCP on day of admission presented with suicidal thoughts # Suicidal idealizations -Denies voices, homocidal, an suicidal ideation at this time. -psych on board -zyprexa -will need inpatient psych. Paperwork started #Vaginal discharge -concern for PID as has significant abdominal pain. vaginal discharge stopped however abdominal pain persists. -Transvaginal U/S sig for fibroids -SPUD GRADER on board. -CTAP pending read. -? somatization -d/c clinda # Hypokalemia -resolved #HTN- controlled off medications. monitor #Psorasis -Pt evidently no bothered at this time. -follow up with dermatology as outpt #polysubstance abuse - no sign of withdrawal. -discussed risks -Pt verbalized understanding #FEN -not on fluid -lytes wnl -reg diet, finger foods #DVT ppx - Hep SubQ #Dispo -will need transfer to inpatient psych Franklin Li MD PGY-1 IM Visit type - Emergency Visit Emergency Visit: No - New Patient This patient is new to me today: Yes Date on this admission: 01/28/18 - Critical Care Critical Care patient: No - Discharge Referral Referred to [facility] Med P.C.: No
[2018-01-28] MEDS ORDERED: HALOPERIDOL LACTATE 5 MG/ML IM ONE (17:49)
--- NOTE | 2018-01-28 18:28 | PN ---
Progress Note (short form) - Note Progress Note: Patient"s uncle for whom she is alegal guardian has today according to her who came to give her the news. patient wants to go home and take care of the arrangements. feels she is doing ok and no longer hearing voices to kill herself or others. patient is agitated to leave but does not appear to be Hallucinating or Delusional at this time. Patient is alert and oriented and appears to comprehend whats been said to her at this time. IV anti biotics have been stopped. PLAN: d/c 1:1. 2) patient can be discharged AMA as she is not suicidal or Homicudal at this time.
== END 2018-01-28 18:43 | disposition left against medical advice (07) | DRG 756 ==
LOC: JER 16:34 → JERBED 18:56 → J6S 20:34
PROVIDERS: ADMIT Internal Medicine; ATTEND Internal Medicine
DX: R45.851 Suicidal ideations (principal); N73.0 Acute parametritis and pelvic cellulitis; N89.8 Other specified noninflammatory disorders of vagina; E87.6 Hypokalemia; I10 Essential (primary) hypertension; L40.9 Psoriasis, unspecified; R10.2 Pelvic and perineal pain; Z88.8 Allergy status to other drugs, medicaments and biological substances; F41.8 Other specified anxiety disorders; F14.10 Cocaine abuse, uncomplicated; F12.10 Cannabis abuse, uncomplicated; F11.10 Opioid abuse, uncomplicated; E78.5 Hyperlipidemia, unspecified; D25.9 Leiomyoma of uterus, unspecified; F17.210 Nicotine dependence, cigarettes, uncomplicated; R45.850 Homicidal ideations
CPT/HCPCS: 36415; 76830-TC; 80048; 80053; 80307; 81003; 83735; 84100; 84703; 85025; 85027; 87086; 87389; 87491; 87591; 93005; 93010; 99283-25; J1644

== ENCOUNTER 2018-03-03 10:28 | Emergency (ER) | payer OTHER ==
[2018-03-03 10:34] VITALS: BMI 29.3
--- NOTE | 2018-03-03 10:49 | PDOC ---
History of Present Illness - General History Source: Patient Exam Limitations: No Limitations - History of Present Illness Initial Comments: 03/03/18 11:32 The patient is a 42 year old female with past medical history of psoriasis, pelvic inflammatory disease, schizoaffective disorder, and drug abuse who presents to the ED with complaints of abdominal pain, nausea, vomiting, and diarrhea for the past week. The patient complains of severe abdominal pain in her epigastrium and superpubic areas, stating shes having contractions. She reports multiple episodes of bloody emesis as well as black stools that began last week. Reports taking advil 3-4 times/day, last dose was this morning. Last BM was this morning. The patient has been seen here and at [facility] multiple times in the past few weeks for similar symptoms and for symptoms which shes had multiple negative hCGs. LMP was last week where she reports heavy clots. Patient is with one and 4 natural births. Upon last admission on 01/25/18, patient was seen by psych, where she was diagnosed on schizoaffective disorder and started on Zyprexa, but in the ED she states she was never started on it. Denies any fevers, chills, cough, SOB, CP, or urinary complaints. Social: 4 pack/day smoker, marijuana use, former crack cocaine use Allergies: Penicillins, iodine <Graciela Varghese - Last Filed: 03/03/18 13:08> <Юлия Farfan - Last Filed: 03/03/18 13:37> - General Chief Complaint: Pain Stated Complaint: ABD PAIN Time Seen by Provider: 03/03/18 10:39 Past History <Graciela Varghese - Last Filed: 03/03/18 13:08> - Past Medical History COPD: No DVT: No HTN: Yes - Immunization History Immunization Up to Date: No - Suicide/Smoking/Psychosocial Hx Smoking History: Never smoked Have you smoked in the past 12 months: Yes Number of Cigarettes Smoked Daily: 4 Information on smoking cessation initiated: No 'Breaking Loose' booklet given: 01/25/18 Hx Alcohol Use: Yes Drug/Substance Use Hx: Yes (pcp,avtar) Substance Use Type: Alcohol, Cocaine, Heroin, Marijuana Hx Substance Use Treatment: No <Юлия Farfan - Last Filed: 03/03/18 13:37> - Past Medical History Allergies/Adverse Reactions: Allergies Allergy/AdvReac Type Severity Reaction Status Date / Time iodine Allergy Mild Swelling Verified 03/03/18 10:31 Penicillins Allergy Mild Hives Verified 03/03/18 10:31 Home Medications: Ambulatory Orders NK [No Known Home Medication] 10/10/17 Review of Systems - Review of Systems Able to Perform ROS?: Yes Comments:: 03/03/18 11:32 GENERAL/CONSTITUTIONAL: No fever or chills. No weakness. HEAD, EYES, EARS, NOSE AND THROAT: No change in vision. No ear pain or discharge. No sore throat. CARDIOVASCULAR: No chest pain or shortness of breath. RESPIRATORY: No cough, wheezing, or hemoptysis. GASTROINTESTINAL:(+) Nausea, vomiting, diarrhea, abdominal pain. Denies constipation. GENITOURINARY: No dysuria, frequency, or change in urination. MUSCULOSKELETAL: No joint or muscle swelling or pain. No neck or back pain. SKIN: No rash NEUROLOGIC: No headache, vertigo, loss of consciousness, or change in strength/ sensation. ENDOCRINE: No increased thirst. No abnormal weight change. HEMATOLOGIC/LYMPHATIC: No anemia, easy bleeding, or history of blood clots. ALLERGIC/IMMUNOLOGIC: No hives or skin allergy. All Other Systems: Reviewed and Negative <Graciela Varghese - Last Filed: 03/03/18 13:08> *Physical Exam - Vital Signs Last Vital Signs Temp Pulse Resp BP Pulse Ox 98 F 90 18 103/71 99 03/03/18 10:29 03/03/18 10:29 03/03/18 10:29 03/03/18 10:29 03/03/18 10:29 - Physical Exam Comments: 03/03/18 11:33 GENERAL: Awake, alert, and fully oriented, in no acute distress HEAD: No signs of trauma EYES: PERRLA, EOMI, sclera anicteric, conjunctiva clear ENT: Auricles normal inspection, hearing grossly normal, nares patent, oropharynx clear without exudates. Moist mucosa NECK: Normal ROM, supple, no lymphadenopathy, JVD, or masses LUNGS: Breath sounds equal, clear to auscultation bilaterally. No wheezes, and no crackles HEART: Regular rate and rhythm, normal S1 and S2, no murmurs, rubs or gallops ABDOMEN: (+) superpubic and bilateral lower quadrant tenderness. Soft, normoactive bowel sounds. No CVA tenderness. No guarding, no rebound. No masses RECTAL: Normal tone, no external hemorrhoids, no gross blood, brown stool EXTREMITIES: Normal range of motion, no edema. No clubbing or cyanosis. No cords, erythema, or tenderness NEUROLOGICAL: Cranial nerves II through XII grossly intact. Normal speech, normal gait SKIN: (+) diffuse psoriasis with skin break down. Warm, Dry, normal turgor <Graciela Varghese - Last Filed: 03/03/18 13:08> - Vital Signs Last Vital Signs Temp Pulse Resp BP Pulse Ox 98 F 90 18 103/71 99 03/03/18 10:29 03/03/18 10:29 03/03/18 10:29 03/03/18 10:29 03/03/18 10:29 <Юлия Farfan - Last Filed: 03/03/18 13:37> ED Treatment Course - LABORATORY CBC & Chemistry Diagram: 03/03/18 11:31 03/03/18 11:31 - RADIOLOGY Radiograph Interpretation: 03/03/18 13:08 Transvaginal ultrasound as reviewed by Dr. Hernandez reports fibroid uterus, normal appearing right ovary with normal vascular flow. Left ovary not visualized. - Medications Given in the ED: ED Medications Discontinued Medications Generic Name Dose Route Start Last Admin Trade Name Freq PRN Reason Stop Dose Admin Sodium Chloride 1,000 ml 03/03/18 11:12 03/03/18 11:24 Normal Saline - IV 03/03/18 11:13 1,000 ml ONCE ONE Administration <Graciela Varghese - Last Filed: 03/03/18 13:08> - LABORATORY CBC & Chemistry Diagram: 03/03/18 11:31 03/03/18 11:31 <Юлия Farfan - Last Filed: 03/03/18 13:37> Medical Decision Making - Medical Decision Making 03/03/18 11:43 a/p: 42yo female presents c/o n/v/d and feels she is and needs to push -fdlmp 02/01 but also said last week -c/o lower abd pain and epigastric pain -was admitted last month for PID - cultures negative -also dx with schizoaffective d/o - had a 2PC that was cancelled for psych hospitalization secondary to a in the family -pt denies taking zyprexa which she was receiving in the ED -c/o dysuria today -states black stool x 1 week and vomiting blood - last bm this AM and was brown per the patient -will send labs, stool for heme -+ttp over suprapubic pelvic region -will obtain ultrasound -beta -will monitor and reassess -iv tylenol, zofran, pepcid, ivf -has been taking advil and advil pm for the last week -pt aggressive, agitated -denies si/hi today 03/03/18 13:32 pt with cocaine, marijuana, pcp pt with fibroids on ultrasound discussed labs and ultrasound recommended the patient consider detox and drug rehab discussed follow up with ob.radiophone operator. answered all questions. stable for d/c to hme pt tolerated po intake in the ED <Юлия Farfan - Last Filed: 03/03/18 13:37> *DC/Admit/Observation/Transfer - Attestations Scribe Attestion: 03/03/18 11:37 Documentation prepared by Graciela Varghese, acting as certified medical biller for Юлия Farfan DO. <Graciela Varghese - Last Filed: 03/03/18 13:08> - Discharge Dispostion Decision to Admit order: No - Attestations Physician Attestion: 03/03/18 13:37 I, Dr. Юлия Farfan DO, attest that this document has been prepared under my direction and personally reviewed by me in its entirety. I further attest, that it accurately reflects all work, treatment, procedures and medical decision -making performed by me. <Юлия Farfan - Last Filed: 03/03/18 13:37> Diagnosis at time of Disposition: Pelvic pain, Fibroid, uterine, Polysubstance abuse, PCP (phencyclidine) abuse - Discharge Dispostion Disposition: HOME Condition at time of disposition: Stable - Referrals Referrals: Lakshmi Browne [Primary Care Provider] - Nadine Jacome MD [Staff Physician] - - Patient Instructions Printed Discharge Instructions: DI for Uterine Fibroids Additional Instructions: Please follow up with your URBAN GARDENING SPECIALIST. Please stop using PCP. Please follow up with your PMD. Please return to the ED with any further concerns or complaints. - Post Discharge Activity
[2018-03-03] MEDS ORDERED: ONDANSETRON 4 MG/2 ML VIAL IVPUSH ONE (11:12)
[2018-03-03] MEDS ORDERED: SODIUM CHLORIDE 0.9% 1000 ML INFUS.BAG IV ONE (11:12)
[2018-03-03] MEDS ORDERED: ACETAMINOPHEN 1000 MG/100 ML VIAL (NON FORMULARY) IVPB ONE (11:12)
[2018-03-03] MEDS ORDERED: ONDANSETRON 4 MG/2 ML VIAL ONE (11:26)
[2018-03-03] MEDS ORDERED: ACETAMINOPHEN INJECTION 100 ML IVPB ONE (11:26)
[2018-03-03 11:35] LABS: URINE APPEARANCE CLEAR; URINE BILIRUBIN NEGATIVE (<2.0 mg/dL); URINE COLOR LTYELLOW; URINE GLUCOSE (UA) NEGATIVE (NEGATIVE); URINE KETONE NEGATIVE (NEGATIVE); URINE LEUK ESTERASE NEGATIVE (NEGATIVE); URINE NITRITE NEGATIVE (NEGATIVE); URINE PROTEIN NEGATIVE (NEGATIVE); URINE UROBILINOGEN NEGATIVE mg/dL (0.2-1.0)
[2018-03-03 11:41] LABS: BASO % 0.8 % (0-2.0); EOS % 2.2 % (0-4.5); HEMATOCRIT 35.8 % (32.4-45.2); MCH 27.9 pg (25.7-33.7); MCHC 33.6 g/dl (32.0-36.0); MEAN CELL VOLUME 83.2 fl (80-96); MEAN PLT VOLUME 9.8 fl (7.5-11.1); MONO % 10.5 % (3.8-10.2); NEUT % 63.5 % (42.8-82.8); PLATELET COUNT 207 K/MM3 (134-434); RBC 4.31 M/mm3 (3.60-5.2); RDW 13.3 % (11.6-15.6); WHITE BLOOD COUNT 5.7 K/mm3 (4.0-10.0)
[2018-03-03] MEDS ORDERED: FAMOTIDINE 20 MG/50 ML IVPB 20 MG/50 ML MG IVPB ONE ×2 (11:56→12:00)
[2018-03-03 12:13] LABS: METHADONE, UR NEGATIVE ng/ml (CUTOFF=300); OPIATES, URI NEGATIVE ng/ml (CUTOFF=300); URINE AMPHETAMINES NEGATIVE ng/ml (CUTOFF=500); URINE BARBITURATES NEGATIVE ng/ml (CUTOFF=200); URINE BENZODIAZEPINES NEGATIVE ng/ml (CUTOFF=200)
[2018-03-03 12:15] LABS: COCAINE, UR POSITIVE ng/ml (CUTOFF=300); PHENCYCLIDINE,URINE POSITIVE ng/ml (CUTOFF=25)
[2018-03-03 12:19] LABS: ALBUMIN 3.3 g/dl (3.4-5.0); ANION GAP 7 (8-16); BILIRUBIN,TOTAL 0.3 mg/dL (0.2-1.0); BLOOD UREA NITROGEN 15 mg/dL (7-18); CALCIUM 8.3 mg/dL (8.5-10.1); CHLORIDE 107 mmol/L (98-107); CO2 27 mmol/L (21-32); CREATININE 0.5 mg/dL (0.55-1.02); GLUCOSE,RANDOM 61 mg/dL (74-106); LIPASE 145 U/L (73-393); SGPT/ALT 18 U/L (12-78); SODIUM 141 mmol/L (136-145); TOT PROT 7.6 g/dl (6.4-8.2)
[2018-03-03 12:22] LABS: ALK PHOS 77 U/L (45-117)
[2018-03-03 12:30] LABS: POTASSIUM 4.3 mmol/L (3.5-5.1); SGOT/AST 29 U/L (15-37)
[2018-03-03 13:46] VITALS: BP 110/78; PULSE 78; TEMP 98
== END 2018-03-03 13:47 | disposition home or self-care (01) ==
LOC: JER 10:28
PROC: 3E033GC Introduction of Other Therapeutic Substance into Peripheral Vein, Percutaneous Approach (ICD-10-PCS; principal; 2018-03-03)
PROC: 3E033GC Introduction of Other Therapeutic Substance into Peripheral Vein, Percutaneous Approach (ICD-10-PCS; 2018-03-03)
PROC: 3E033NZ Introduction of Analgesics, Hypnotics, Sedatives into Peripheral Vein, Percutaneous Approach (ICD-10-PCS; 2018-03-03)
DX: D25.9 Leiomyoma of uterus, unspecified (principal); F16.10 Hallucinogen abuse, uncomplicated; F25.9 Schizoaffective disorder, unspecified
CPT/HCPCS: 36415; 76830-TC; 80053; 80307; 81003; 82272; 83690; 84702; 85025; 87086; 96365; 96375; 99281-25; J0131; J7030

== ENCOUNTER 2018-11-20 00:25 | Emergency (ER) | payer OTHER ==
[2018-11-20 01:50] VITALS: BP 112/79; PULSE 101; TEMP 98.6; BMI 30.9
--- NOTE | 2018-11-20 02:40 | PDOC ---
Attending Attestation - HPI HPI: 11/20/18 03:34 Patient is a 42 year old female with a significant past medical history of psoriasis, pelvic inflammatory disease, schizoaffective disorder, and drug abuse , who presents to the ED with complaints of right sided head pain that began earlier this week. Patient reports experiencing slight right sided ear pain as well as sensation of movement on her right side that she states moves towards the front of her head. She reports believing there to be spiders in her head due to the sensation of movement. Patient began to become increasingly worried about the right sided head pain, prompting her to come into the ED for further evaluation. Denies chest pain, Sob. Denies nausea, vomiting. Denies fevers, chills. Denies contact with sick individuals, out of state travelling. Denies any other symptoms. Allergies: Iodine, Penicillin. Social history: 4 pack/day smoker, marijuana use, former crack cocaine use Surgical history: None PMD: Dr. Browne - Physicial Exam PE: 11/20/18 03:34 Agree with residents Physical Exam. <Benitez Enciso - Last Filed: 11/20/18 03:34> - Resident Resident Name: Marko Sevilla - ED Attending Attestation I have performed the following: I have examined & evaluated the patient, The case was reviewed & discussed with the resident, I agree w/resident's findings & plan - Medical Decision Making 11/20/18 03:37 42-year-old female with rash and ear pain Cortisporin otic Patient to follow-up with her boy's adviser on the first as scheduled <Sabrina Wharton - Last Filed: 11/20/18 03:38>
[2018-11-20] MEDS ORDERED: IBUPROFEN 600 MG TABLET (FP) PO ONE ×2 (02:47→03:10)
--- NOTE | 2018-11-20 02:59 | PDOC ---
History of Present Illness - General Chief Complaint: Rash Stated Complaint: RASH, INSECT BITE Time Seen by Provider: 11/20/18 02:25 History Source: Patient Exam Limitations: No Limitations - History of Present Illness Initial Comments: 11/20/18 02:51 Patient is a 42F with history of psoriasis here today complaining of bugs in her ears, especially her right ear. She states that she is concerned because she feels itching inside of her ear and is concerned the bugs would go to her brain. Patient states that she is no longer taking medication to control her psoriasis and is using q tips to scratch her ears. Denies fevers, chills, nausea , vomiting and changes to her vision. Past History - Past Medical History Allergies/Adverse Reactions: Allergies Allergy/AdvReac Type Severity Reaction Status Date / Time iodine Allergy Mild Swelling Verified 11/20/18 01:47 Penicillins Allergy Mild Hives Verified 11/20/18 01:47 Home Medications: Ambulatory Orders Neomycin/Polymyxn/Hc [Cortisporin Otic Solution -] 5 drop AU Q6HPO #1 bottle COPD: No DVT: No HTN: Yes - Immunization History Immunization Up to Date: No - Suicide/Smoking/Psychosocial Hx Smoking History: Current every day smoker Have you smoked in the past 12 months: No Number of Cigarettes Smoked Daily: 4 Information on smoking cessation initiated: No 'Breaking Loose' booklet given: 03/03/18 Hx Alcohol Use: No Drug/Substance Use Hx: No Substance Use Type: Alcohol, Cocaine, Heroin, Marijuana Hx Substance Use Treatment: No Review of Systems - Review of Systems Comments:: 11/20/18 02:54 GENERAL/CONSTITUTIONAL: No fever or chills. No weakness. HEAD, EYES, EARS, NOSE AND THROAT: No change in vision. No ear pain or discharge. No sore throat. CARDIOVASCULAR: No chest pain or shortness of breath RESPIRATORY: No cough, wheezing, or hemoptysis. GASTROINTESTINAL: No nausea, vomiting, diarrhea or constipation. GENITOURINARY: No dysuria, frequency, or change in urination. MUSCULOSKELETAL: No joint or muscle swelling or pain. No neck or back pain. SKIN: +rash NEUROLOGIC: No headache, vertigo, loss of consciousness, or change in strength/ sensation. *Physical Exam - Vital Signs Last Vital Signs Temp Pulse Resp BP Pulse Ox 98.6 F 101 H 19 112/79 98 11/20/18 00:25 11/20/18 00:25 11/20/18 00:25 11/20/18 00:25 11/20/18 00:25 - Physical Exam Comments: 11/20/18 02:54 GENERAL: Awake, alert, and fully oriented, in no acute distress HEAD: No signs of trauma, normocephalic, atraumatic EYES: PERRLA, EOMI, sclera anicteric, conjunctiva clear ENT: Auricles normal inspection, hearing grossly normal, nares patent, oropharynx clear without exudates. Moist mucosa. Ear canals show psoriatic lesions with areas of erythema consistent with q tip use. No insects or foreign bodies. NECK: Normal ROM, supple, no lymphadenopathy, JVD, or masses LUNGS: No distress, speaks full sentences, clear to auscultation bilaterally HEART: Regular rate and rhythm, normal S1 and S2, no murmurs, rubs or gallops, peripheral pulses normal and equal bilaterally. ABDOMEN: Soft, nontender, normoactive bowel sounds. No guarding, no rebound. No masses EXTREMITIES: Normal inspection, Normal range of motion, no edema. No clubbing or cyanosis. NEUROLOGICAL: Cranial nerves II through XII grossly intact. Normal speech, normal gait, no focal sensorimotor deficits SKIN: Warm, Dry, normal turgor, no rashes or lesions noted. Medical Decision Making - Medical Decision Making 11/20/18 02:59 Patient is 42F here today with foreign body sensation in ear. Vitals normal and stable. Believe sensation is most likely secondary to psoriasis. Has follow up available. Will discharge with motrin and ear drops with steroids. *DC/Admit/Observation/Transfer Diagnosis at time of Disposition: Ear pain, right - Discharge Dispostion Disposition: HOME Condition at time of disposition: Good Decision to Admit order: No - Referrals Referrals: Lakshmi Browne [Primary Care Provider] - - Patient Instructions Printed Discharge Instructions: DI for Ear Pain-Adult Additional Instructions: Please follow up with your primary care physician and pediatric allergist. Please return if you have any new, worsening or concerning symptoms, especially fever, weakness and increasing pain. - Post Discharge Activity
== END 2018-11-20 03:15 | disposition home or self-care (01) ==
LOC: JER 00:25
DX: H92.01 Otalgia, right ear (principal); F17.210 Nicotine dependence, cigarettes, uncomplicated; I10 Essential (primary) hypertension; L40.9 Psoriasis, unspecified
CPT/HCPCS: 99281-25

== ENCOUNTER 2019-09-05 09:33 | Emergency (ER) | payer OTHER ==
[2019-09-05 09:41] VITALS: TEMP 98.5; BMI 29.0
[2019-09-05] MEDS ORDERED: ONDANSETRON 4 MG/2 ML VIAL IVPUSH ONE (10:08)
[2019-09-05] MEDS ORDERED: ACETAMINOPHEN 1000 MG/100 ML VIAL (NON FORMULARY) IVPB ONE (10:08)
[2019-09-05] MEDS ORDERED: SODIUM CHLORIDE 0.9% 500 ML INFUS.BAG IV ONE (10:08)
--- NOTE | 2019-09-05 10:31 | PDOC ---
History of Present Illness - General Chief Complaint: Pain, Acute Stated Complaint: WORMS IN STOOL - History of Present Illness Initial Comments: The pt is a 43F w/ a questionable history of lupus who presents for evaluation of worms in her stool. She states she noticed them last night and this morning. She denies any known suspicious foods, international travel, or sick contacts. She endorses associated generalized abdominal pain with NBNB Vx1. She denies fevers/chills, chest pain, trouble breathing dysuria, hematuria, or blood in her stool. PMH: lupus? PSH: Fibroid removal, C/S SH: +THC, PCP EtOH 09/05/19 10:04 Past History - Past Medical History Allergies/Adverse Reactions: Allergies Allergy/AdvReac Type Severity Reaction Status Date / Time iodine Allergy Mild Swelling Verified 11/20/18 01:47 Penicillins Allergy Mild Hives Verified 11/20/18 01:47 Home Medications: Ambulatory Orders Neomycin/Polymyxn/Hc [Cortisporin Otic Solution -] 5 drop AU Q6HPO #1 bottle Albendazole [ALBENZA -] 400 mg PO ONCE #2 tablet 09/05/19 Mebendazole [Emverm] 400 mg PO ONCE #1 tab.chew 09/05/19 COPD: No DVT: No HTN: Yes - Immunization History Immunization Up to Date: No - Psycho Social/Smoking Cessation Hx Smoking History: Never smoked Have you smoked in the past 12 months: No Number of Cigarettes Smoked Daily: 4 Information on smoking cessation initiated: No 'Breaking Loose' booklet given: 03/03/18 Hx Alcohol Use: No Drug/Substance Use Hx: No Substance Use Type: Alcohol, Cocaine, Heroin, Marijuana Hx Substance Use Treatment: No Review of Systems - Review of Systems Able to Perform ROS?: Yes Comments:: GENERAL/CONSTITUTIONAL: No fever or chills. No weakness HEAD, EYES, EARS, NOSE AND THROAT: No change in vision. No change in hearing. No sore throat CARDIOVASCULAR: No chest pain or shortness of breath RESPIRATORY: Denies cough, hemoptysis GASTROINTESTINAL: per HPI GENITOURINARY: No dysuria, frequency, or change in urination MUSCULOSKELETAL: No joint or muscle swelling or pain. No neck or back pain SKIN: No rash NEUROLOGIC: No headache, vertigo, loss of consciousness, or change in strength/ sensation ENDOCRINE: No increased thirst. No abnormal weight change HEMATOLOGIC/LYMPHATIC: No anemia, easy bleeding, or history of blood clots ALLERGIC/IMMUNOLOGIC: No hives or skin allergy 09/05/19 18:32 Is the patient limited Burmese proficient: No *Physical Exam - Vital Signs Last Vital Signs Temp Pulse Resp BP Pulse Ox 98.5 F 99 H 18 153/85 98 09/05/19 09:38 09/05/19 09:38 09/05/19 09:38 09/05/19 09:38 09/05/19 09:38 - Physical Exam GENERAL: Awake, alert, and oriented to person/place/time, in no acute distress HEAD: No signs of trauma, normocephalic, atraumatic EYES: PERRLA, EOMI, sclera anicteric, conjunctiva clear ENT: Hearing grossly normal, nares patent, oropharynx clear without exudates. Moist mucosa LUNGS: No distress, speaks in full sentences, clear to auscultation bilaterally HEART: Regular rate and rhythm, normal S1 and S2, no murmurs appreciated, peripheral pulses normal and equal bilaterally ABDOMEN: Soft, protuberant, generalized TTP w/o rebound or guarding, normoactive bowel sounds EXTREMITIES: Normal inspection, Normal range of motion, no edema. No clubbing or cyanosis NEUROLOGICAL: Cranial nerves II through XII grossly intact. Normal speech, normal gait, no focal sensorimotor deficits SKIN: Warm, Dry 09/05/19 18:32 ED Treatment Course - LABORATORY CBC & Chemistry Diagram: 09/05/19 10:45 09/05/19 10:45 Medical Decision Making - Medical Decision Making The pt is a 43F w/ a questionable history of lupus who presents for evaluation of worms in her stool ED Course Stool cultures/ova parasites sent Pt brought worm sample with her Serum preg neg 09/05/19 14:[address] results discussed with pt Rx for mebendazole sent to pt's pharmacy Plan for D/C w/ PCP f/u Discharge instructions and return precautions given Patient in agreement and verbalized understanding Dispo: Home 09/05/19 16:05 Discharge - Discharge Information Problems reviewed: Yes Clinical Impression/Diagnosis: Worms in stool Condition: Stable Disposition: HOME - Admission No - Additional Discharge Information Prescriptions: Albendazole [ALBENZA -] 400 mg PO ONCE #2 tablet Mebendazole [Emverm] 400 mg PO ONCE #1 tab.chew - Follow up/Referral Referrals: Lakshmi Browne [Primary Care Provider] - - Patient Discharge Instructions Patient Printed Discharge Instructions: DI for Acute Abdomen Additional Instructions: You were seen in the Emergency Department for evaluation of worms in your stool. You were prescribed mebendazole 400mg once. Take today. You need to return in 2 weeks to give another stool sample to ensure that the treatment is complete. Return to an Emergency Department if you develop fevers/chills, chest pain, trouble breathing, inability to tolerate foods, persistent vomiting, worsening symptoms, or any new/concerning symptoms. - Post Discharge Activity Work/Back to School Note: Back to Work
[2019-09-05] MEDS ORDERED: ONDANSETRON 4 MG/2 ML VIAL ONE (10:51)
[2019-09-05] MEDS ORDERED: ACETAMINOPHEN INJECTION 100 ML IVPB ONE (10:51)
[2019-09-05 11:23] LABS: BASO % 0.9 % (0-2.0); HEMATOCRIT 37.9 % (32.4-45.2); HEMOGLOBIN 12.5 GM/dL (10.7-15.3); LYMPH % 34.1 % (8-40); MCH 27.3 pg (25.7-33.7); MCHC 33.1 g/dl (32.0-36.0); MEAN CELL VOLUME 82.7 fl (80-96); MEAN PLT VOLUME 10.2 fl (7.5-11.1); MONO % 17.6 % (3.8-10.2); NEUT % 46.4 % (42.8-82.8); PLATELET COUNT 215 K/MM3 (134-434); RBC 4.59 M/mm3 (3.60-5.2); RDW 14.8 % (11.6-15.6); WHITE BLOOD COUNT 4.4 K/mm3 (4.0-10.0)
[2019-09-05 11:45] LABS: ALBUMIN 3.6 g/dl (3.4-5.0); BILIRUBIN,TOTAL 0.2 mg/dL (0.2-1); BLOOD UREA NITROGEN 9.1 mg/dL (7-18); CALCIUM 8.8 mg/dL (8.5-10.1); CREATININE 0.6 mg/dL (0.55-1.3); POTASSIUM 3.6 mmol/L (3.5-5.1); TOT PROT 7.9 g/dl (6.4-8.2)
--- NOTE | 2019-09-05 12:02 | PDOC ---
Attending Attestation - Resident Resident Name: Yanick Mclain - ED Attending Attestation I have performed the following: I have examined & evaluated the patient, The case was reviewed & discussed with the resident, I agree w/resident's findings & plan, Exceptions are as noted - HPI HPI: 09/05/19 12:03 Ms Swanson is a 43 yo F who presents to the ER with a concern for worms in her stool Pt noted abdominal pain since yesterday Yesterday, she had a bowel movement and noted worms in her stool She also noted nausea and vomiting She thought she saw worms in her vomit as well No fever No recent travel No international food No raw meat or shell fish - Physicial Exam PE: 09/05/19 12:02 GENERAL: The patient is in no acute distress. ENT: Ears normal, nares patent, oropharynx clear without exudates. Moist mucous membranes. NECK: Normal range of motion, supple LUNGS: Breath sounds equal, clear to auscultation bilaterally. No wheezes, and no crackles. HEART:Regular rate and rhythm, normal S1 and S2 without murmur, rub or gallop. ABDOMEN: Soft, diffusely tender to palpation EXTREMITIES: Normal range of motion, no edema. NEUROLOGICAL: Cranial nerves II through XII grossly intact. Normal speech. No focal neurological deficits. SKIN: Warm, Dry, normal turgor, no rashes or lesions noted. 09/05/19 12:06 - Medical Decision Making 09/05/19 12:02 43 yo F presenting with abdominal pain and reported worms in her stool and emesis Pt brought a sample to the ER I do not see any moving worms will do: Will do CT Will send stool for O&P Laboratory Tests 09/05/19 09/05/19 10:45 10:45 WBC 4.4 Hgb 12.5 Hct 37.9 Plt Count 215 BUN 9.1 Creatinine 0.[address] abd and pelvis: No acute findings Will ask pt to follow up with PMD Return to the E for any other concerns or complaints 09/05/19 12:07 09/06/19 13:37
[2019-09-05] MEDS ORDERED: FLU VACCINE QUAD 60 MCG/0.5 ML (MDV 19-20) IM ONE (13:48)
[2019-09-05 17:43] VITALS: BP 138/70; PULSE 88
== END 2019-09-05 17:43 | disposition home or self-care (01) ==
LOC: SUPCPDRO 09:33 → JER 09:33
PROC: 3E033NZ Introduction of Analgesics, Hypnotics, Sedatives into Peripheral Vein, Percutaneous Approach (ICD-10-PCS; principal; 2019-09-05)
PROC: 3E033GC Introduction of Other Therapeutic Substance into Peripheral Vein, Percutaneous Approach (ICD-10-PCS; 2019-09-05)
DX: B81.8 Other specified intestinal helminthiases (principal); Z88.0 Allergy status to penicillin; Z88.8 Allergy status to other drugs, medicaments and biological substances; I10 Essential (primary) hypertension
CPT/HCPCS: 36415; 74177-TC; 80053; 83690; 84703; 85025; 96374; 96375; 99283-25; J0131; Q9967

== ENCOUNTER 2020-02-28 04:22 | Emergency (ER) | payer OTHER ==
[2020-02-28 04:45] VITALS: TEMP 98.8; BMI 34.3
--- NOTE | 2020-02-28 05:09 | PDOC ---
Attending Attestation - Resident Resident Name: TalatTonio - ED Attending Attestation I have performed the following: I have examined & evaluated the patient, The case was reviewed & discussed with the resident, I agree w/resident's findings & plan - HPI HPI: 02/28/20 05:36 Pt comes after she slipped and fell while running in the rain. Pt's right bif toenail is lifted off the base and pt primarily complains of that pain. Pt also has a source of infection from that skin tear/opening. Pt has complaints of musculoskeletal aches and pains. She is PCN allergic. She has a severe form of lupus. - Physicial Exam PE: 02/28/20 05:38 Agree with resident exam 02/28/20 06:36 Pt has lupus rash/blisters/broken skin/ lesions of lupus on extremities, abd, breasts, back, neck, feet etc. Pt has her docs, rheumatologists and she has been dealing with this for last 5 years. Heart and lungs clear. No abd pain No flank pain. Pt has some muscluloskeletal patchy pain from her fall Pt has no foot swelling. Right 1st toenail bloody and avulsed from the base; the germinal matrix is intact. - Medical Decision Making 02/28/20 05:38 TDAP, doxycycline BID x 7 days lidoderm patch for here steristrips to anchor the partially avilsed toenails. 02/28/20 06:39 Pt will get XR of her foot/toe to make sure there is no FB beneath the toenail and pt will be stable for discharge with abx, and analgesics. 02/28/20 06:47 Pt will be signed out to the day team Discharge - Discharge Information Problems reviewed: Yes Clinical Impression/Diagnosis: Fall Qualifiers: Encounter type: initial encounter Qualified Code(s): W19.XXXA - Unspecified fall, initial encounter Toe pain Qualifiers: Laterality: right Qualified Code(s): M79.674 - Pain in right toe(s) Condition: Improved Disposition: HOME - Additional Discharge Information Prescriptions: Doxycycline Hyclate 100 mg PO BID 7 Days #14 tablet - Follow up/Referral Referrals: Hollis Miller MD [Staff Physician] - Lakshmi Browne [Primary Care Provider] - - Patient Discharge Instructions Patient Printed Discharge Instructions: How to Prevent Falls, DI for Foot Pain Additional Instructions: Please take Doxycycline 100 mg twice a day for 7 days. Please make a follow up appointment with an orthopedist if your symptoms do not improve. Please follow up with your PCP and welding machine setter for continued lupus care. Continue taking your medications as prescribed. If you experience any new, worsening, or concerning symptoms, including worsening pain, shortness of breath, numbness, tingling, or any other concerns, please return to the emergency department. - Post Discharge Activity
[2020-02-28] MEDS ORDERED: DOXYCYCLINE HYCLATE 100 MG CAPSULE PO ONE ×2 (05:35→05:43)
[2020-02-28] MEDS ORDERED: LIDOCAINE 5% TOPICAL PATCH TP ONE (05:38)
--- NOTE | 2020-02-28 05:39 | PDOC ---
History of Present Illness - General Chief Complaint: Injury Stated Complaint: FALL Time Seen by Provider: 02/28/20 05:04 - History of Present Illness Initial Comments: Yenifer Swanson is a 44 y/o female with PMH significant for lupus, alcohol use disorder, substance use disorder. Reports that she slipped and fell on wet wood tonight and landed on her left side. Able to ambulate and bear weight. No headache. No neck pain. No dizziness. No palpitations. Reports right great toe pain. SocHx: drank 2 beers tonight and used PCP yesterday. Past History - Medical History Allergies/Adverse Reactions: Allergies Allergy/AdvReac Type Severity Reaction Status Date / Time iodine Allergy Mild Swelling Verified 02/28/20 04:45 Penicillins Allergy Mild Hives Verified 02/28/20 04:45 Home Medications: Ambulatory Orders Neomycin/Polymyxn/Hc [Cortisporin Otic Solution -] 5 drop AU Q6HPO #1 bottle 11/20/18 Albendazole [ALBENZA -] 400 mg PO ONCE #2 tablet 09/05/19 Mebendazole [Emverm] 400 mg PO ONCE #1 tab.chew 09/05/19 Doxycycline Hyclate 100 mg PO BID 7 Days #14 tablet 02/28/20 COPD: No DVT: No HTN: Yes Other medical history: LUPUS - Immunization History Immunization Up to Date: No - Psycho-Social/Smoking History Smoking History: Current every day smoker Have you smoked in the past 12 months: No Number of Cigarettes Smoked Daily: 3 Information on smoking cessation initiated: Yes 'Breaking Loose' booklet given: 03/03/18 - Substance Abuse Hx (Audit-C & DAST Scrn) How often the patient has a drink containing alcohol: 2-4 times / month Number of drinks the patient has on a typical day: 1 or 2 How often the patient has six or more drinks on one occasion: Less than monthly Score: In Men: 4 or > Positive; In Women: 3 or > Positive: 3 Screen Result (Pos requires Nsg. Audit-10AR): Positive In the last yr the pt used illegal drug/Rx for NonMed reason: Yes Score: Yes response is considered Positive: 1 Screen Result (Positive result requires Nsg. DAST-10): Positive Review of Systems - Review of Systems Comments:: GENERAL/CONSTITUTIONAL: No fever or chills. No weakness._ HEAD, EYES, EARS, NOSE AND THROAT: No change in vision. No change in hearing. No sore throat._ CARDIOVASCULAR: No chest pain or shortness of breath_ RESPIRATORY: Denies cough, hemoptysis_ GASTROINTESTINAL: No nausea, vomiting, diarrhea or constipation._ GENITOURINARY: No dysuria, frequency, or change in urination._ MUSCULOSKELETAL: Reports right toe pain and left hip pain. No neck or back pain._ SKIN: No rash_ NEUROLOGIC: No headache, vertigo, loss of consciousness, or change in strength/sensation._ ENDOCRINE: No increased thirst. No abnormal weight change_ HEMATOLOGIC/LYMPHATIC: No anemia, easy bleeding, or history of blood clots._ ALLERGIC/IMMUNOLOGIC: No hives or skin allergy._ *Physical Exam - Vital Signs Last Vital Signs Temp Pulse Resp BP Pulse Ox 98.8 F 97 H 18 108/66 99 02/28/20 04:37 02/28/20 04:37 02/28/20 04:37 02/28/20 04:37 02/28/20 04:37 - Physical Exam GENERAL: Awake, alert, and oriented to person/place/time, in no acute distress_ HEAD: No signs of trauma, normocephalic, atraumatic _ EYES: PERRLA, EOMI, sclera anicteric, conjunctiva clear_ ENT: Hearing grossly normal, nares patent, oropharynx clear without exudates. No uvular deviation. Moist mucosa_ NECK: Normal ROM, supple, no lymphadenopathy, JVD, or masses_ LUNGS: No distress, speaks in full sentences, clear to auscultation bilaterally _ HEART: Regular rate and rhythm, normal S1 and S2, no murmurs appreciated, peripheral pulses normal and equal bilaterally._ ABDOMEN: Soft, nontender, normoactive bowel sounds. No guarding, no rebound. No masses_ EXTREMITIES: Right great toe subungual hematoma. No other tenderness or bruising over the extremities. NEUROLOGICAL: Cranial nerves II through XII grossly intact. Normal speech, normal gait, no focal sensorimotor deficits _ SKIN: Diffuse lesions consistent with lupus. Warm. Dry. ED Treatment Course - RADIOLOGY Radiology Studies Ordered: Category Date Time Status ANKLE & FOOT-RIGHT* [RAD] Stat Radiology 02/28/20 05:34 Ordered Medical Decision Making - Medical Decision Making 02/28/20 05:37 44F hx of lupus, presenting s/p mechanical fall on wet wood. Will obtain XR right foot/ankle, start on doxycycline, apply lidoderm patch. Pt s/o to Dr. Mitchell and Dr. Alejo pending further work up. Discharge - Discharge Information Problems reviewed: Yes Clinical Impression/Diagnosis: Fall Qualifiers: Encounter type: initial encounter Qualified Code(s): W19.XXXA - Unspecified fall, initial encounter Toe pain Qualifiers: Laterality: right Qualified Code(s): M79.674 - Pain in right toe(s) Condition: Improved Disposition: HOME - Admission No - Additional Discharge Information Prescriptions: Doxycycline Hyclate 100 mg PO BID 7 Days #14 tablet - Follow up/Referral Referrals: Hollis Miller MD [Staff Physician] - Lakshmi Browne [Primary Care Provider] - - Patient Discharge Instructions Patient Printed Discharge Instructions: How to Prevent Falls, DI for Foot Pain Additional Instructions: Please take Doxycycline 100 mg twice a day for 7 days. Please make a follow up appointment with an orthopedist if your symptoms do not improve. Please follow up with your PCP and signal maintainer helper for continued lupus care. Continue taking your medications as prescribed. If you experience any new, worsening, or concerning symptoms, including worsening pain, shortness of breath, numbness, tingling, or any other concerns, please return to the emergency department. - Post Discharge Activity
[2020-02-28] MEDS ORDERED: LIDOCAINE 5% TOPICAL PATCH ONE (05:43)
[2020-02-28 06:32] VITALS: BP 96/65; PULSE 78
--- NOTE | 2020-02-28 10:45 | PDOC ---
*Physical Exam - Vital Signs Last Vital Signs Temp Pulse Resp BP Pulse Ox 98.8 F 78 18 96/65 98 02/28/20 06:31 02/28/20 06:31 02/28/20 06:31 02/28/20 06:31 02/28/20 06:31 ED Treatment Course - RADIOLOGY Radiology Studies Ordered: Category Date Time Status HIP & PELVIS-LEFT [RAD] Stat Radiology 02/28/20 09:12 Completed RIBS-LEFT SIDE [RAD] Stat Radiology 02/28/20 09:12 Completed - Medications Given in the ED: ED Medications Discontinued Medications Generic Name Dose Route Start Last Admin Trade Name Freq PRN Reason Stop Dose Admin Doxycycline Hyclate 100 mg 02/28/20 05:35 02/28/20 05:48 Vibramycin - PO 02/28/20 05:36 100 mg ONCE ONE Administration Lidocaine 1 patch 02/28/20 05:38 02/28/20 05:48 Lidoderm Patch - TP 02/28/20 05:39 1 patch ONCE ONE Administration Medical Decision Making - Medical Decision Making 02/28/20 10:44 Patient signed out to me from night team pending foot XR and re-evaluation Re-assessment: Patient endorses significant left hip and left rib pain from her fall. Otherwqise has no complaints at the present time Plan: left Hip + Rib x-rays, re-assess XR's: No acute pathology Dispo: Home with PCP and rheum FU The patient appears clinically sober, is A&O x4, and appears to be capable and have capacity to make reasonable decisions. The patient states they are currently in the emergency department, knows who the president is, states the correct time, correct day, and correct month. The patient is ambulatory in ER and has walked around the nursing station multiple times with a straight gait, and is not ataxic. Tolerating PO well, ate a sandwich and drank juice. Denies having any SI or HI. Patient states will not be driving home. I discussed the physical exam findings, ancillary test results and final diagnoses with the patient. I answered all of the patient's questions. The patient was satisfied with the care received and felt comfortable with the discharge plan and treatment plan. The patient will call their primary care physician within 24 hours to arrange follow-up and will return to the Emergency Department with any new, persistent or worsening symptoms. Please note, this clinical encounter is taking place during a federal and state health care emergency attributable to the novel [place] Virus pandemic. The [place] of the Department of Health and Human Services has declared, pursuant to the Public Health Service Act 319F-3 (42 U.S.C. 247d-6d), that a covered persons activities related to medical countermeasures against COVID-19 will be immune from liability under Federal and State law. Discharge - Discharge Information Problems reviewed: Yes Clinical Impression/Diagnosis: Fall Qualifiers: Encounter type: initial encounter Qualified Code(s): W19.XXXA - Unspecified fall, initial encounter Toe pain Qualifiers: Laterality: right Qualified Code(s): M79.674 - Pain in right toe(s) Condition: Improved Disposition: HOME - Admission No - Additional Discharge Information Prescriptions: Doxycycline Hyclate 100 mg PO BID 7 Days #14 tablet - Follow up/Referral Referrals: Hollis Miller MD [Staff Physician] - Lakshmi Browne [Primary Care Provider] - - Patient Discharge Instructions Patient Printed Discharge Instructions: How to Prevent Falls, DI for Foot Pain Additional Instructions: Please take Doxycycline 100 mg twice a day for 7 days. Please make a follow up appointment with an orthopedist if your symptoms do not improve. Please follow up with your PCP and supervisor fitting for continued lupus care. Continue taking your medications as prescribed. If you experience any new, worsening, or concerning symptoms, including worsening pain, shortness of breath, numbness, tingling, or any other concerns, please return to the emergency department. - Post Discharge Activity
[2020-02-28] MEDS ORDERED: LIDOCAINE PATCH REMOVAL MC SCH (22:00)
== END 2020-02-28 10:55 | disposition home or self-care (01) ==
LOC: JER 04:22
DX: M79.674 Pain in right toe(s) (principal); W01.0XXA Fall on same level from slipping, tripping and stumbling without subsequent striking against object, initial encounter
CPT/HCPCS: 71101-TC-LT-FY; 73523-TC-FY; 73610-TC-RT-FY; 73630-TC-RT-FY; 99284-25

== ENCOUNTER 2020-05-07 17:33 | Emergency (ER) | payer OTHER ==
[2020-05-07] MEDS ORDERED: ACETAMINOPHEN 500 MG TABLET (FP) PO ONE (18:01)
--- NOTE | 2020-05-07 18:05 | PDOC ---
Rapid Medical Evaluation Chief Complaint: Weakness Time Seen by Provider: 05/07/20 17:49 Medical Evaluation: Allergies Allergy/AdvReac Type Severity Reaction Status Date / Time iodine Allergy Mild Swelling Verified 05/07/20 17:51 Penicillins Allergy Mild Hives Verified 05/07/20 17:51 Vital Signs Temp Pulse Resp BP Pulse Ox 98.6 F 80 20 102/64 100 05/07/20 17:46 05/07/20 17:46 05/07/20 17:46 05/07/20 17:46 05/07/20 17:46 05/07/20 18:02 HPI: COVID-19 CDC guideline data points: The patient is a 44-year-old F presents with suspected COVID-19 with associated symptoms of fever, dry cough, anosmia, anorexia, sore throat, posttussive vomiting complicated by this/these comorbidities: none. Allergies: Iodine, penicillin ROS: NEGATIVE: difficulty breathing, shortness of breath, chest pain, lightheadedness, dizziness, nausea, and diarrhea. Exam: General: NAD, Well-Appearing, Awake, Alert Oriented x3. Vital signs stable. ENT: No rhinorrhea or nasal congestion. Neck: FROM, no midline tenderness. Lungs: Clear to auscultation bilaterally without wheezes, rhonchi or rales. Normal excursion. Patient is able to speak in full sentences. Heart: HR: 80. Regular rhythm, S1-S2 present, no murmurs rubs or gallops. Abdomen: Non-distended. MSK/Extremities: No decrease ROM, No obvious deformities. No obvious cyanosis noted. Neuro: Normal Gait, Cranial Nerves II through XII Grossly Intact. Skin: No obvious rashes, bruising. Color Normal Appearing. Assessment/Plan: Cough, fevers, nausea, anorexia, sore throat, posttussive vo miting Patient has a history of this/these comorbidities: none, denies recent travel and known COVID exposure. Patient does meet testing criteria at this time. ASSESSMENT: Denies recent travel and known Covid exposure. Treatment: COVID-19 testing Tylenol 975 mg orally now Discharge Discharge Disposition - Diagnosis URI, acute, Counseled about COVID-19 virus infection - Discharge Dispostion Disposition: HOME Condition at time of disposition: Stable Decision to Admit order: No - Referrals - Patient Instructions Printed Discharge Instructions: [facility]-Coronavirus Instructions Additional Instructions: Rest, drink lots of fluids: Teas, water, soups, Pedialyte Saltwater gargles Steamy showers/seem to face break up mucus Avoid contact with others until fevers and cough resolved Lots of handwashing and good hygiene Continue [id number] medications for symptomatic relief Tylenol or Motrin for fever and pain Followup with private physician in one to 2 days as needed Return to emergency department for worsened symptoms, fevers, dehydration COVID-19 testing will be resulted in 24 to 48 hours. You will receive a phone call from the emergency department regardless of results. - Post Discharge Activity Work/School Note: Back to Work
[2020-05-07 18:06] VITALS: BP 102/64; PULSE 80; TEMP 98.6; BMI 32.8
[2020-05-07] MEDS ORDERED: ACETAMINOPHEN 325 MG TABLET (FP) ONE (18:27)
== END 2020-05-07 18:35 | disposition left against medical advice (07) ==
LOC: JER 17:33 → JERFT 17:33
DX: Z11.59 Encounter for screening for other viral diseases (principal)
CPT/HCPCS: 99284-25; U0003

== ENCOUNTER 2020-05-08 23:30 | Emergency (ER) | payer OTHER ==
[2020-05-08 23:49] VITALS: TEMP 99.1; BMI 35.0
--- NOTE | 2020-05-09 00:38 | PDOC ---
History of Present Illness - General Chief Complaint: Cold Symptoms Stated Complaint: COUGHING/CONSTIPATION/NO TASTE/SMELL/WEAKNESS Time Seen by Provider: 05/09/20 00:35 History Source: Patient Exam Limitations: No Limitations - History of Present Illness Initial Comments: 05/09/20 00:38 HPI: This is a 44 y/o female with no known pmh presenting to the ED due to multiple complaints. She states that she has been having four months of subjective fever/chills, cough, post-cough emesis, abdominal pain, and pain when she urinates. She also states that she believes she is despite having her menstrual period two weeks ago as it was only two days compared to her normal length of seven. She has taken a test which has come back negative, but reports that she has had negative tests in the past when she was actually . She describes the abdominal pain as in her "ovaries and uterus." She denies any vaginal bleeding or discharge. She does admit to "pain when she urinates," but states that it is not burning. She reports that the cough is productive of small amounts of yellow sputum. She denies sick contacts, chest pain, shortness of breath, sore throat, or congestion. The last time she vomited was in the ED waiting area. ROS: GENERAL/CONSTITUTIONAL: Yes subjective fever/chills. No weakness. HEAD, EYES, EARS, NOSE AND THROAT: No ear pain or discharge. No sore throat. CARDIOVASCULAR: No chest pain or shortness of breath. RESPIRATORY: Yes cough. Denied wheezing. GASTROINTESTINAL: Yes nausea/vomiting. Denied diarrhea or constipation. Admits to lower abdominal pain. GENITOURINARY: Yes dysuria, frequency, or change in urination. MUSCULOSKELETAL: No joint or muscle swelling or pain. No neck or back pain. SKIN: Pruritic diffuse skin rash NEUROLOGIC: No headache, vertigo HEMATOLOGIC/LYMPHATIC: No anemia, easy bleeding, or history of blood clots. ALLERGIC/IMMUNOLOGIC: Diffuse chronic skin rash PMH: Denied Social Hx: Admits to tobacco, crack, PCP, marijuana. Denies etoh. Meds: Acetaminophen Allergies: Penicillin PE: GENERAL: Awake, alert, and fully oriented, in no acute distress. Patient is non- toxic in appearance. In bed and conversational. HEAD: No signs of trauma. Annular rash on scalp. EYES: PERRLA, EOMI ENT: Oropharynx clear without exudates. Moist mucosa NECK: Normal ROM, supple LUNGS: Breath sounds equal, clear to auscultation bilaterally. HEART: Regular rate and rhythm, normal S1 and S2, no murmurs, rubs or gallops ABDOMEN: Tender to palpation in suprapubic area. EXTREMITIES: Normal range of motion, no edema. NEUROLOGICAL: Cranial nerves II through XII grossly intact. Normal speech, nor mal gait SKIN: Warm, Dry, normal turgor. Diffuse rash. MDM: This is a 44 y/o female with no known pmh presenting to the ED due to multiple complaints. She states that she has been having four months of subjective fever/chills, abdominal pain, cough and pain when she urinates. - Patient is an unreliable historian who reports that she has not seen a primary care physician in a long time. - Due to smoking history and cough, will do CXR - For urinary symptoms will get a UA, culture - Abdominal pain will get transvaginal U/S, test, cmp, lipase - Fever/chills will obtain CBC to search for infection as source - Zofran for nausea - albuterol nebulizer for cough 05/09/20 03:06 Transvaginal US: IMPRESSION: No acute pathology. Small fibroids. Nonvisualization of the left ovary. 05/09/20 03:08 - Labs WNL - nausea improved with zofran - cough improved with albuterol No acute processes. Given smoking hx, prolonged cough, and sputum production will give abx for possible bacterial bronchitis - Patient does not have any follow-up. Will refer to [facility] Past History - Medical History Allergies/Adverse Reactions: Allergies Allergy/AdvReac Type Severity Reaction Status Date / Time iodine Allergy Mild Swelling Verified 05/07/20 17:51 Penicillins Allergy Mild Hives Verified 05/08/20 23:46 Home Medications: Ambulatory Orders Neomycin/Polymyxn/Hc [Cortisporin Otic Solution -] 5 drop AU Q6HPO #1 bottle 11/20/18 Albendazole [ALBENZA -] 400 mg PO ONCE #2 tablet 09/05/19 Mebendazole [Emverm] 400 mg PO ONCE #1 tab.chew 09/05/19 Doxycycline Hyclate 100 mg PO BID 7 Days #14 tablet 02/28/20 Azithromycin [Zithromax Tri-Lisandro (3 DAYS) -] 500 mg PO DAILY #3 tablet 05/09/20 Pimecrolimus [Elidel] 5 gm TP BID #100 cream..g. 05/09/20 COPD: No DVT: No HTN: Yes - Reproductive History Is Patient Now?: No - Immunization History Immunization Up to Date: No - Psycho-Social/Smoking History Smoking History: Current every day smoker Have you smoked in the past 12 months: No Number of Cigarettes Smoked Daily: 12 Information on smoking cessation initiated: No 'Breaking Loose' booklet given: 03/03/18 - Substance Abuse Hx (Audit-C & DAST Scrn) How often the patient has a drink containing alcohol: Monthly or less Number of drinks the patient has on a typical day: 1 or 2 How often the patient has six or more drinks on one occasion: Less than monthly Score: In Men: 4 or > Positive; In Women: 3 or > Positive: 2 Screen Result (Pos requires Nsg. Audit-10AR): Negative In the last yr the pt used illegal drug/Rx for NonMed reason: No Score: Yes response is considered Positive: 0 Screen Result (Positive result requires Nsg. DAST-10): Negative *Physical Exam - Vital Signs Last Vital Signs Temp Pulse Resp BP Pulse Ox 99.1 F 75 20 148/83 100 05/08/20 23:41 05/08/20 23:41 05/08/20 23:41 05/08/20 23:41 05/08/20 23:41 ED Treatment Course - LABORATORY CBC & Chemistry Diagram: 05/09/20 01:35 05/09/20 01:35 Discharge - Discharge Information Problems reviewed: Yes Clinical Impression/Diagnosis: Atypical pneumonia Abdominal pain Qualifiers: Abdominal location: generalized Qualified Code(s): R10.84 - Generalized abdominal pain Condition: Stable Disposition: HOME - Admission No - Additional Discharge Information Prescriptions: Pimecrolimus [Elidel] 5 gm TP BID #100 cream..g. Azithromycin [Zithromax Tri-Lisandro (3 DAYS) -] 500 mg PO DAILY #3 tablet - Follow up/Referral Referrals: [facility] [place] [Provider Group] - Patient Discharge Instructions Patient Printed Discharge Instructions: DI for Abdominal Pain-Adult Additional Instructions: You came to the ED today because of abdominal pain, nausea/vomiting, and chills for the past 4 months. We did labs, and everything came back WNL. We also did a transvaginal ultrasound which did not show any . Your chest xray looked normal. We referred you to the [facility] for follow-up. Please follow-up with them in the next week. We sent a prescription for Azithromycin to the [facility] on [facility]. You can pick it up tomorrow morning. Please make sure to take it as prescribed and to finish the entire prescription. You may use over the counter medications as needed for pain at home. 650mg acetaminophen (Tylenol) or 600mg ibuprofen (Motrin or Advil) can be used every 6-8 hours. If needed for continued pain, these medications may be alternated every 3-4 hours. For example, if you take ibuprofen at 9am, you may take acetaminophen at noon, ibuprofen at 3pm, etc. - It is strongly recommended that you take ibuprofen with food to help prevent stomach irritation. Please return to the ED with any new or concerning symptoms. - Post Discharge Activity
--- NOTE | 2020-05-09 00:39 | PDOC ---
Attending Attestation - Resident Resident Name: Naila Champagne - ED Attending Attestation I have performed the following: I have examined & evaluated the patient, The case was reviewed & discussed with the resident, I agree w/resident's findings & plan - HPI HPI: 05/09/20 00:57 Pt was here yesterday with cough and viral illness and spitting up and SOB; ongoing for the past 4 months. Pt also complains of pelvic pain and she thinks that she is . 05/09/20 00:58 Yesterday had a negative COVID swab. Now back because she is coughing 05/09/20 01:06 Pt is afebrile - Physicial Exam PE: 05/09/20 02:37 Agree with resident exam 05/09/20 21:41 Pt has severe psoriasis/eczematous lesions all over her body - Medical Decision Making 05/09/20 02:34 ua normal, CBC normal 05/09/20 02:35 CMP pending mono pending 05/09/20 02:59 Patient Name: SEMAJ STONE THIS IS A PRELIMINARY REPORT DATE OF SERVICE: 2020-05-09 01:34:28 IMAGES: 33 EXAM: Transabdominal pelvic ultrasound and endovaginal ULTRASOUND US and pelvic duplex HISTORY: Pelvic pain COMPARISON: None. FINDINGS: Transabdominal pelvic ultrasound: Uterus is anteverted without adnexal masses. Endovaginal pelvic ultrasound: Uterus is anteverted and measures 11.2centimeters in length. The endometrium is 8millimeters in thickness. There is a 2.6 cm posterior fundal subserosal fibroid and a 2.0 cm anterior uterine body intramural fibroid.. The right ovary measures 3.1centimeters in length, appears normal and demonstrates normal flow. Left ovary is not visualized. There is no significant free fluid. Pelvic duplex: There is normal arterial and venous flow in the right ovary IMPRESSION: No acute pathology. Small fibroids. Nonvisualization of the left ovary Heart Score/ECG Review - ECG Intrepretation Rhythm: Regular Rhythm - Angle Inlet Angle Inlet: Normal - P and FL Prominent R with upright T in V1 (true posterior UT): No Delta Wave(s) Present: No WPW: No - QRS Poor R Wave Progression: No Q Wave Present: No - ST and T Early Repolarization: No Non Specific ST-T Wave changes: No Flattened T Waves: No Prolonged Q-T Interval: No - ECG Impressions Normal ECG: Yes Non-specific ST Elevation: No Ischemic Changes: No Bradycardia: No Torsades armaan Pointes: No WPW: No Discharge - Discharge Information Problems reviewed: Yes Clinical Impression/Diagnosis: Atypical pneumonia Abdominal pain Qualifiers: Abdominal location: generalized Qualified Code(s): R10.84 - Generalized abdominal pain Condition: Stable Disposition: HOME - Additional Discharge Information Prescriptions: Pimecrolimus [Elidel] 5 gm TP BID #100 cream..g. Azithromycin [Zithromax Tri-Lisandro (3 DAYS) -] 500 mg PO DAILY #3 tablet - Follow up/Referral Referrals: [facility] [place] [Provider Group] - Patient Discharge Instructions Patient Printed Discharge Instructions: DI for Abdominal Pain-Adult Additional Instructions: You came to the ED today because of abdominal pain, nausea/vomiting, and chills for the past 4 months. We did labs, and everything came back WNL. We also did a transvaginal ultrasound which did not show any . Your chest xray looked normal. We referred you to the [facility] for follow-up. Please follow-up with them in the next week. We sent a prescription for Azithromycin to the [facility] on . You can pick it up tomorrow morning. Please make sure to take it as prescribed and to finish the entire prescription. You may use over the counter medications as needed for pain at home. 650mg acetaminophen (Tylenol) or 600mg ibuprofen (Motrin or Advil) can be used every 6-8 hours. If needed for continued pain, these medications may be alternated every 3-4 hours. For example, if you take ibuprofen at 9am, you may take acetaminophen at noon, ibuprofen at 3pm, etc. - It is strongly recommended that you take ibuprofen with food to help prevent stomach irritation. Please return to the ED with any new or concerning symptoms. - Post Discharge Activity
[2020-05-09] MEDS ORDERED: ONDANSETRON 4 MG TABLET PO ONE (01:05)
[2020-05-09] MEDS ORDERED: ALBUTEROL SO4 2.5/IPRATROPIUM 0.5 INH SOL 3 ML VIAL.NEB. NEB ONE ×2 (01:08→01:23)
[2020-05-09] MEDS ORDERED: ONDANSETRON *ODT* 4 MG TABLET ONE (01:24)
[2020-05-09 02:12] LABS: URINE APPEARANCE CLEAR; URINE BILIRUBIN NEGATIVE (NEGATIVE); URINE COLOR YELLOW; URINE GLUCOSE (UA) NEGATIVE (NEGATIVE); URINE KETONE NEGATIVE (NEGATIVE); URINE LEUK ESTERASE NEGATIVE (NEGATIVE); URINE NITRITE NEGATIVE (NEGATIVE); URINE PROTEIN NEGATIVE (NEGATIVE)
[2020-05-09 02:14] LABS: BASO % 1.7 % (0-2.0); HEMATOCRIT 37.4 % (32.4-45.2); HEMOGLOBIN 12.5 GM/dL (10.7-15.3); LYMPH % 36.8 % (8-40); MCH 28.5 pg (25.7-33.7); MCHC 33.6 g/dl (32.0-36.0); MEAN CELL VOLUME 84.9 fl (80-96); MEAN PLT VOLUME 10.2 fl (7.5-11.1); MONO % 10.7 % (3.8-10.2); NEUT % 47.8 % (42.8-82.8); PLATELET COUNT 210 K/MM3 (134-434); RDW 15.8 % (11.6-15.6); WHITE BLOOD COUNT 3.1 K/mm3 (4.0-10.0)
[2020-05-09 02:38] LABS: ALBUMIN 3.5 g/dl (3.4-5.0); BILIRUBIN,TOTAL 0.2 mg/dL (0.2-1); CALCIUM 8.5 mg/dL (8.5-10.1); CREATININE 0.6 mg/dL (0.55-1.3); POTASSIUM 3.8 mmol/L (3.5-5.1); TOT PROT 7.8 g/dl (6.4-8.2)
[2020-05-09 04:03] VITALS: BP 144/83; PULSE 82
--- NOTE | 2020-05-10 10:57 | EKG ---
Test Reason : Blood Pressure : / mmHG Vent. Rate : 064 BPM Atrial Rate : 064 BPM P-R Int : 162 ms QRS Dur : 092 ms QT Int : 420 ms P-R-T Axes : 052 066 058 degrees QTc Int : 433 ms NORMAL SINUS RHYTHM NONSPECIFIC T WAVE ABNORMALITY WHEN COMPARED WITH ECG OF 25-JAN-2018 18:36, T WAVE VARIATION Confirmed by ROVERTO DEL REAL MD ([id number]) on 05/10/2020 10:57:00 AM Referred By: Confirmed By:ROVERTO DEL REAL MD
== END 2020-05-09 04:03 | disposition home or self-care (01) ==
LOC: JER 23:30
PROC: 3E0F7GC Introduction of Other Therapeutic Substance into Respiratory Tract, Via Natural or Artificial Opening (ICD-10-PCS; principal; 2020-05-08)
DX: J18.9 Pneumonia, unspecified organism (principal); R10.84 Generalized abdominal pain
CPT/HCPCS: 36415; 71046-TC-FY; 76830-TC; 80053; 80307; 81003; 83690; 84703; 85025; 86308; 93005; 93010; 99285-25

== ENCOUNTER 2022-05-28 10:37 | Inpatient (IN) | payer OTHER ==
[2022-05-28] MEDS ORDERED: KETOROLAC TROMETHAMINE 30 MG/1 ML VIAL IVPUSH ONE (11:06)
[2022-05-28] MEDS ORDERED: CLINDAMYCIN 600MG PREMIX IVPB 600 MG/50 ML BAG IVPB ONE ×3 (11:06→19:35)
[2022-05-28] MEDS ORDERED: KETOROLAC TROMETHAMINE 30 MG/1 ML VIAL ONE (11:29)
[2022-05-28 11:47] LABS: BASO % 0.8 % (0-2.0); EOS % 1.8 % (0-4.5); HEMATOCRIT 34.9 % (32.4-45.2); HEMOGLOBIN 11.7 GM/dL (10.7-15.3); LYMPH % 18.6 % (8-40); MCH 28.8 pg (25.7-33.7); MCHC 33.6 g/dl (32.0-36.0); MEAN CELL VOLUME 85.8 fl (80-96); MONO % 15.5 % (3.8-10.2); NEUT % 63.3 % (42.8-82.8); PLATELET COUNT 174 10^3/uL (134-434); RBC 4.07 M/mm3 (3.60-5.2); RDW 14.2 % (11.6-15.6); WHITE BLOOD COUNT 4.2 K/mm3 (4.0-10.0)
[2022-05-28 12:05] LABS: PROTHROMBIN TIME (PATIENT) 11.5 SEC (9.7-13.0)
[2022-05-28 12:14] LABS: ALBUMIN 3.3 g/dl (3.4-5.0); BLOOD UREA NITROGEN 8.3 mg/dL (7-18); CALCIUM 8.5 mg/dL (8.5-10.1)
[2022-05-28 12:17] LABS: CREATININE 0.6 mg/dL (0.55-1.3)
[2022-05-28 12:19] LABS: BILIRUBIN,TOTAL 0.3 mg/dL (0.2-1); TOT PROT 8.3 g/dl (6.4-8.2)
[2022-05-28] MEDS ORDERED: ACETAMINOPHEN 1000 MG/100 ML BAG IVPB ONE (14:53)
[2022-05-28] MEDS ORDERED: ACETAMINOPHEN INJECTION 100 ML IVPB ONE (14:57)
[2022-05-28] MEDS ORDERED: POTASSIUM CHLORIDE ORAL LIQUID 20 MEQ/15 ML PO ONE (18:42)
[2022-05-28] MEDS ORDERED: POTASSIUM CHLORIDE ORAL LIQUID 20 MEQ/15 ML ONE (19:35)
[2022-05-28] MEDS: CLINDAMYCIN 600MG PREMIX IVPB 600 MG/50 ML BAG IVPB SCH (20:46)
[2022-05-28] MEDS: ACETAMINOPHEN 325 MG TABLET (FP) PO PRN (20:46)
[2022-05-28] MEDS: SODIUM CHLORIDE 1,000 ML IV SCH (20:47)
[2022-05-28] MEDS: LACTOBACILLUS ACIDOPHILUS 1 TABLET PO SCH (20:50)
[2022-05-28] MEDS ORDERED: IBUPROFEN 800 MG/8 ML IJ IVPB PRN (21:31)
[2022-05-28] MEDS: HEPARIN NA (PORCINE) 5,000 UNITS/ML 1ML VIAL SQ SCH (22:00)
[2022-05-29 01:34] LABS: URINE BARBITURATES NEGATIVE (NEGATIVE)
[2022-05-29 01:35] LABS: METHADONE, UR NEGATIVE (NEGATIVE); URINE AMPHETAMINES NEGATIVE (NEGATIVE); URINE BENZODIAZEPINES NEGATIVE (NEGATIVE)
[2022-05-29 01:37] LABS: COCAINE, UR POSITIVE (NEGATIVE); OPIATES, URI NEGATIVE (NEGATIVE); PHENCYCLIDINE,URINE POSITIVE (NEGATIVE)
[2022-05-29] MEDS: CLINDAMYCIN 600MG PREMIX IVPB 600 MG/50 ML BAG IVPB SCH ×4 (03:00→21:00)
[2022-05-29] MEDS: LACTOBACILLUS ACIDOPHILUS 1 TABLET PO SCH (10:06)
[2022-05-29] MEDS: HEPARIN NA (PORCINE) 5,000 UNITS/ML 1ML VIAL SQ SCH ×2 (10:06→21:00)
[2022-05-29 10:20] LABS: EOS % 1.8 % (0-4.5); HEMOGLOBIN 10.8 GM/dL (10.7-15.3); LYMPH % 25.7 % (8-40); MCH 28.7 pg (25.7-33.7); MCHC 32.7 g/dl (32.0-36.0); MEAN CELL VOLUME 87.8 fl (80-96); MEAN PLT VOLUME 10.8 fl (7.5-11.1); MONO % 16.8 % (3.8-10.2); NEUT % 54.7 % (42.8-82.8); PLATELET COUNT 168 10^3/uL (134-434); RBC 3.76 M/mm3 (3.60-5.2); RDW 14.2 % (11.6-15.6); WHITE BLOOD COUNT 4.1 K/mm3 (4.0-10.0)
[2022-05-29 11:01] LABS: ALBUMIN 2.9 g/dl (3.4-5.0); BLOOD UREA NITROGEN 6.6 mg/dL (7-18)
[2022-05-29 11:04] LABS: CREATININE 0.5 mg/dL (0.55-1.3)
[2022-05-29 11:05] LABS: BILIRUBIN,TOTAL 0.4 mg/dL (0.2-1); TOT PROT 7.6 g/dl (6.4-8.2)
[2022-05-29 14:00] VITALS: RESP 18
[2022-05-29] MEDS: CEFTRIAXONE 2 GM in DEXTROSE 5%-WATER 100 ML IVPB SCH (15:32)
[2022-05-29] MEDS: SODIUM CHLORIDE 1,000 ML IV SCH (20:27)
[2022-05-29] MEDS: ACETAMINOPHEN 325 MG TABLET (FP) PO PRN (20:32)
[2022-05-30] MEDS: CLINDAMYCIN 600MG PREMIX IVPB 600 MG/50 ML BAG IVPB SCH ×4 (01:59→20:52)
[2022-05-30] MEDS: ACETAMINOPHEN 325 MG TABLET (FP) PO PRN ×2 (08:24→20:02)
[2022-05-30] MEDS: HEPARIN NA (PORCINE) 5,000 UNITS/ML 1ML VIAL SQ SCH ×2 (09:52→21:01)
[2022-05-30] MEDS: LACTOBACILLUS ACIDOPHILUS 1 TABLET PO SCH (09:52)
[2022-05-30] MEDS: CEFTRIAXONE 2 GM in DEXTROSE 5%-WATER 100 ML IVPB SCH (10:24)
[2022-05-30 12:32] LABS: HEMATOCRIT 31.2 % (32.4-45.2); HEMOGLOBIN 10.2 GM/dL (10.7-15.3); MCH 28.3 pg (25.7-33.7); MCHC 32.8 g/dl (32.0-36.0); MEAN CELL VOLUME 86.1 fl (80-96); MEAN PLT VOLUME 10.4 fl (7.5-11.1); PLATELET COUNT 175 10^3/uL (134-434); RBC 3.62 M/mm3 (3.60-5.2); RDW 14.5 % (11.6-15.6); WHITE BLOOD COUNT 2.7 K/mm3 (4.0-10.0)
[2022-05-30 12:41] LABS: ALBUMIN 2.6 g/dl (3.4-5.0); BLOOD UREA NITROGEN 6.5 mg/dL (7-18); MAGNESIUM 2.5 mg/dL (1.8-2.4)
[2022-05-30 12:43] LABS: CREATININE 0.5 mg/dL (0.55-1.3); PHOSPHOROUS 3.7 mg/dL (2.5-4.9)
[2022-05-30 12:44] LABS: BILIRUBIN,TOTAL 0.3 mg/dL (0.2-1); TOT PROT 7.3 g/dl (6.4-8.2)
[2022-05-30 13:20] LABS: ANISOCYTOSIS 2+; MACROCYTOSIS 0; PLATELET ESTIMATE DECREASED
[2022-05-30 13:34] LABS: HIV INTERPRETATION NEGATIVE (NEGATIVE)
[2022-05-30] MEDS ORDERED: POTASSIUM CHLORIDE TABS 20 MEQ TABLET.ER (FP) PO ONE (14:46)
[2022-05-30] MEDS: MINERAL OIL/PET HY-PHL TOPICAL OINTMENT 454 GM JAR TP SCH (15:48)
[2022-05-30] MEDS: SODIUM CHLORIDE 1,000 ML IV SCH (17:49)
[2022-05-31] MEDS: ACETAMINOPHEN 325 MG TABLET (FP) PO PRN ×4 (00:24→21:17)
[2022-05-31] MEDS: CLINDAMYCIN 600MG PREMIX IVPB 600 MG/50 ML BAG IVPB SCH ×4 (02:12→21:17)
[2022-05-31] MEDS: SODIUM CHLORIDE 1,000 ML IV SCH (06:21)
[2022-05-31] MEDS: HEPARIN NA (PORCINE) 5,000 UNITS/ML 1ML VIAL SQ SCH ×2 (09:21→21:18)
[2022-05-31] MEDS: LACTOBACILLUS ACIDOPHILUS 1 TABLET PO SCH (09:21)
[2022-05-31] MEDS: MINERAL OIL/PET HY-PHL TOPICAL OINTMENT 454 GM JAR TP SCH (09:22)
[2022-05-31] MEDS: CEFTRIAXONE 2 GM in DEXTROSE 5%-WATER 100 ML IVPB SCH (09:52)
[2022-05-31 12:11] LABS: BASO % 0.9 % (0-2.0); EOS % 5.6 % (0-4.5); HEMATOCRIT 30.3 % (32.4-45.2); HEMOGLOBIN 9.9 GM/dL (10.7-15.3); LYMPH % 23.6 % (8-40); MCH 28.4 pg (25.7-33.7); MCHC 32.6 g/dl (32.0-36.0); MEAN PLT VOLUME 10.3 fl (7.5-11.1); MONO % 17.3 % (3.8-10.2); NEUT % 52.6 % (42.8-82.8); PLATELET COUNT 190 10^3/uL (134-434); RBC 3.48 M/mm3 (3.60-5.2); RDW 14.1 % (11.6-15.6); WHITE BLOOD COUNT 3.3 K/mm3 (4.0-10.0)
[2022-05-31 12:44] LABS: ALBUMIN 2.6 g/dl (3.4-5.0); BLOOD UREA NITROGEN 5.9 mg/dL (7-18); CALCIUM 7.9 mg/dL (8.5-10.1)
[2022-05-31 12:45] LABS: MAGNESIUM 2.4 mg/dL (1.8-2.4)
[2022-05-31 12:47] LABS: CREATININE 0.5 mg/dL (0.55-1.3); PHOSPHOROUS 3.6 mg/dL (2.5-4.9)
[2022-05-31 12:48] LABS: BILIRUBIN,TOTAL 0.3 mg/dL (0.2-1)
[2022-05-31] MEDS ORDERED: DEXTROSE 50%-WATER 25 GM/50 ML DISP.SYRIN ONE (16:47)
[2022-05-31 19:37] VITALS: BMI 34.3
[2022-06-01] MEDS: CLINDAMYCIN 600MG PREMIX IVPB 600 MG/50 ML BAG IVPB SCH ×2 (03:00→10:04)
[2022-06-01] MEDS: SODIUM CHLORIDE 1,000 ML IV SCH (04:47)
[2022-06-01] MEDS: ACETAMINOPHEN 325 MG TABLET (FP) PO PRN (07:24)
[2022-06-01 08:53] LABS: BASO % 0.7 % (0-2.0); EOS % 5.6 % (0-4.5); HEMATOCRIT 29.5 % (32.4-45.2); LYMPH % 34.4 % (8-40); MCH 29.2 pg (25.7-33.7); MCHC 33.8 g/dl (32.0-36.0); MEAN CELL VOLUME 86.4 fl (80-96); MEAN PLT VOLUME 9.4 fl (7.5-11.1); MONO % 16.8 % (3.8-10.2); NEUT % 42.5 % (42.8-82.8); PLATELET COUNT 191 10^3/uL (134-434); RBC 3.42 M/mm3 (3.60-5.2); WHITE BLOOD COUNT 3.1 K/mm3 (4.0-10.0)
[2022-06-01 09:16] LABS: ALBUMIN 2.7 g/dl (3.4-5.0); BLOOD UREA NITROGEN 7.6 mg/dL (7-18); MAGNESIUM 2.2 mg/dL (1.8-2.4)
[2022-06-01 09:19] LABS: PHOSPHOROUS 3.9 mg/dL (2.5-4.9)
[2022-06-01 09:20] LABS: BILIRUBIN,TOTAL 0.2 mg/dL (0.2-1); CREATININE 0.5 mg/dL (0.55-1.3)
[2022-06-01] MEDS: LACTOBACILLUS ACIDOPHILUS 1 TABLET PO SCH (10:03)
[2022-06-01] MEDS: HEPARIN NA (PORCINE) 5,000 UNITS/ML 1ML VIAL SQ SCH (10:04)
[2022-06-01] MEDS: MINERAL OIL/PET HY-PHL TOPICAL OINTMENT 454 GM JAR TP SCH (10:18)
[2022-06-01] MEDS: CEFTRIAXONE 2 GM in DEXTROSE 5%-WATER 100 ML IVPB SCH (10:55)
[2022-06-01 11:33] VITALS: BP 127/76; PULSE 62; TEMP 98.4
== END 2022-06-01 13:35 | disposition home or self-care (01) | DRG 383 ==
LOC: JER 10:37 → JERBED 15:11 → J6S 20:03 → OBSVTOIN 05-29 14:19
PROVIDERS: ADMIT Internal Medicine; ATTEND Internal Medicine
DX: L03.211 Cellulitis of face (principal); K08.89 Other specified disorders of teeth and supporting structures; F17.210 Nicotine dependence, cigarettes, uncomplicated; M32.9 Systemic lupus erythematosus, unspecified; Z86.74 Personal history of sudden cardiac arrest; F19.10 Other psychoactive substance abuse, uncomplicated; F41.9 Anxiety disorder, unspecified; F32.A Depression, unspecified; Z91.51 Personal history of suicidal behavior; R21 Rash and other nonspecific skin eruption; L40.9 Psoriasis, unspecified; D72.819 Decreased white blood cell count, unspecified
CPT/HCPCS: 36415; 70491-TC; 70540; 80053; 80307; 83735; 84100; 84703; 85025; 85610; 85651; 86140; 87040; 87389; 93005; 93010; 93306-TC; 93970-TC; 99285-25; C9803-CS; G0378; J1644; Q9967; U0003; U0005